=== PATIENT | male | born 1940 | race Caucasian/White ===

== ENCOUNTER 2018-02-16 01:51 | Inpatient (IN) | payer MEDICARE ==
[2018-02-16 02:59] LABS: #Basophils 0.1 thou/uL (0.0-0.2); #Eosinphils 0.2 thou/uL (0.0-0.7); #Lymphocytes 2.5 thou/uL (1.20-3.40); #Monocytes 0.8 thou/uL (0.11-0.59); #Neutrophils 7.2 thou/uL (1.40-6.50); %Basophils 0.5 % (0.0-1.0); %Eosinophils 1.8 % (0.0-10.0); %Lymphocytes 23.4 % (21.0-51.0); %Monocytes 7.6 % (0.0-10.0); %Neutrophils 66.7 % (42.0-75.0); Mean Corpuscular HGB CONC 32.9 g/dL (32.0-36.0); Mean Corpuscular Hemoglobin 31.8 pg (27.0-31.0); Mean Corpuscular Volume 96.6 fL (78.0-98.0); Mean Platelet Volume 7.5 fL (7.4-10.4); Platelet Count 297 thou/uL (130-400); RBC Distribution Width 13.9 % (11.5-14.5); Red Blood Cell (RBC) Count 5.02 mill/uL (4.70-6.10); White Blood Cell (WBC) Count 10.9 thou/uL (4.8-10.8)
[2018-02-16 03:21] LABS: ALT (SGPT) 32 U/L (8-55); AST (SGOT) 28 U/L (5-34); Albumin 3.9 g/dL (3.4-4.8); Alcohol 209 mg/dL (Less than 10); Alkaline Phosphatase 43 U/L (40-150); Anion Gap 18 mmol/L (10-20); BUN (Urea Nitrogen) 18 mg/dL (8.4-25.7); Bilirubin, Total 0.3 mg/dL (0.2-1.2); Calc. Creatinine Clearance 0 mL/min (70-130); Calcium 9.1 mg/dL (7.8-10.44); Carbon Dioxide 24 mmol/L (23-31); Chloride 100 mmol/L (98-107); Estimated GFR-MDRD Greater than 90; Globulin 3.3 g/dL (2.4-3.5); Glucose 204 mg/dL (83-110); Potassium 3.6 mmol/L (3.5-5.1); Protein, Total 7.2 g/dL (5.8-8.1); Sodium 138 mmol/L (136-145)
[2018-02-16] MEDS ORDERED: Fentanyl 100 MCG/2 ML VIAL ONE (03:44)
[2018-02-16 03:57] LABS: PTT 28.1 SEC (22.9-36.1); Prothrombin Time 13.5 SEC (12.0-14.7)
--- NOTE | 2018-02-16 08:11 | CON ---
DATE OF CONSULTATION: 02/16/2018 ATTENDING PHYSICIAN: Dr. Niles Love. HISTORY OF PRESENT ILLNESS: The patient is a 77-year-old male, who presented to the emergency department per EMS after he fell and hit his head at a [employer]. The patient was reportedly drinking that evening and had an alcohol level of 209 on arrival. The patient has little memory of the event. CT head was done on arrival, which showed a small right-sided traumatic subarachnoid hemorrhage. The patient denies taking any anticoagulants or lyme-vpz-[id number] aspirin. I am visiting the patient at bedside. He is awake, alert, and in no acute distress. He has no focal neurologic deficits. He has GCS 15. PAST MEDICAL HISTORY: Diabetes, hypertension, ulcerative colitis. PAST SURGICAL HISTORY: L4-S1 laminectomy by Dr. Major. SOCIAL HISTORY: The patient does drink alcohol approximately 5 beers per day. He does not smoke or use any drugs. ALLERGIES: HE IS ALLERGIC TO HYDROCODONE, INSULIN, PENICILLIN, AND ALMONDS, ALSO FENTANYL. REVIEW OF SYSTEMS: Per HPI. PHYSICAL EXAMINATION: VITAL SIGNS: BP is 115/54, pulse is 90, respiration rate is 17, temperature is 98.2, and O2 is 98% on room air. CONSTITUTIONAL: Awakens easily. He is in no acute distress. HEENT: Head, he has a right posterior scalp laceration, which has recently been repaired by the emergency department. Eyes, PERRLA. Extraocular movements intact. ENT, oral mucosa is pink, intact, and moist. The patient has normal voice. NECK: He is currently wearing a cervical collar. He did not have any tenderness to palpation. RESPIRATORY: Symmetric chest expansion. No evidence of dyspnea. CARDIOVASCULAR: Regular rate and rhythm. MUSCULOSKELETAL: Free active range of motion of all extremities. No focal motor weakness. No reflex asymmetry. NEUROLOGIC: A and O x4. No focal neurologic deficits are appreciated. ASSESSMENT AND PLAN: This is a 77-year-old male, who suffered a right-sided traumatic subarachnoid hemorrhage after a mechanical fall with EtOH intoxication. We will plan to monitor the patient closely with Q2 neuro checks and repeat the CT head approximately 8 hours after the event. He remains in a cervical collar at this time considering his underlying ETOH intoxication, and as this improves his cervical collar can likely be cleared. There are no acute changes on his cervical spine on CT. I have discussed this plan with Dr. Love as well as Trauma Service. Job ID: [id number]
--- NOTE | 2018-02-16 08:39 | RAD ---
PORTABLE AP CHEST XRAY: DATE: 02/16/2018. HISTORY: Chest pain, hypoglycemia. COMPARISON: . FINDINGS: The cardiac silhouette and pulmonary vasculature are within normal limits. Again noted is evidence o f prior granulomatous disease. There is mild elevation of the right hemidiaphragm. Lungs are otherw ise clear. Vascular calcification is seen in the thoracic aorta. The chest is overall stable compar ed to the prior exam. IMPRESSION: Stable chest without evidence of acute cardiopulmonary process. POS: [facility]
[2018-02-16] MEDS ORDERED: Acetaminophen 1,000 MG in Premix Bag 1 BAG IVPB SCH (08:51)
[2018-02-16] MEDS ORDERED: Dextrose 5% in Water 1,000 ML IV PRN (08:51)
[2018-02-16] MEDS ORDERED: Ondansetron PF 4 MG/2 ML Vial IVP PRN (08:51)
[2018-02-16] MEDS ORDERED: Ondansetron ODT 4 MG TAB PO PRN (08:51)
[2018-02-16] MEDS ORDERED: Dextrose 50% Abboject 50 ML SYRINGE SLOW IVP PRN (08:51)
[2018-02-16] MEDS ORDERED: Multivitamins, Adult 10 ML, Folic Acid 1 MG, Thiamine HCl 100 MG in Dextrose 5 %-0.45 %... IV SCH (09:00)
--- NOTE | 2018-02-16 09:48 | CT ---
PRELIMINARY REPORT/[facility]/EMERGENTY AFTER-HOURS PROCEDURE Addendum created by Katie Lazo MD on 02/16/2018 3:32 AM Central Time ([place] & [place]) THIS REPORT CONTAINS FINDINGS THAT MAY BE CRITICAL TO PATIENT CARE. The findings were verbally commun icated via telephone conference with ANITA Anthony by Dr. Lazo on 02/16/2018 3:32 AM SENIOR EDITOR. The results were acknowledged and understood. Initial Report created on 02/16/2018 3:27 AM Central Time ([place] & [place]) CT Head Without Contrast EXAM DATE/TIME: 02/16/2018 2:43 AM CLINICAL HISTORY: 77 years old, male; Injury or trauma; Fall; Initial encounter; Abrasion; Head, generalized; Patient H X: Er 4; Ems reports PT fell from standing, lac noted to back of head bleeding controlled. +etoh TECHNIQUE: Axial computed tomography images of the head/brain without contrast. COMPARISON: No relevant prior studies available. FINDINGS: Brain: Small serpiginous focus of acute subarachnoid hemorrhage within a posterolateral right parieta l sulcus (series 2, images 15-18). There is no evidence for acute stroke. There is global and diffuse parenchymal volume loss. There are scattered foci of decreased attenuation in the periventricular and subcortical white matter, nonspec ific, but most consistent with chronic small vessel ischemic changes in patient of this age. Focal ec angelika M1 segment left middle cerebral artery. Ventricles / cisterns / extra-axial spaces: There is no hydrocephalus, midline shift, or acute extra- axial fluid collection. There is no sulcal effacement. Soft tissues: Right lateral parietal scalp hematoma without underlying skull fracture or depression. Sinuses: No findings of acute sinusitis or suspicious sinus mass. Bone: No acute fracture or displacement. Impression: Small serpiginous focus of acute subarachnoid hemorrhage within a posterolateral right parietal sulcu s (series 2, images 15-18). No mass effect. No acute stroke. Focal ectasia M1 segment left middle cerebral artery. Thank you for allowing us to participate in the care of your patient. Dictated and Authenticated by: Katie Lazo MD 02/16/2018 3:27 AM Central Time ([place] & [place]) FINAL REPORT EMERGENT AFTER HOURS NONCONTRAST CT HEAD: DATE: 02/16/2018. HISTORY: Injury after falling from standing. COMPARISON: None available. IMPRESSION: 1. Areas of subarachnoid hemorrhage seen within the inferior aspect right parietal lobe, lateral lef t supraventricular frontal lobe, more superior right parietal lobe, posteromedial left parietal lobe, and questionable area in the more anterior left frontal lobe in a supraventricular location. 2. Diffuse cerebral volume loss. 3. Right parietal scalp hematoma without evidence of an underlying fracture. 4. Focal ectasia M1 segment left middle cerebral artery. 5. Findings are in agreement with the preliminary report by [facility]. There are scattered areas of sub arachnoid hemorrhage within each cerebral hemisphere. POS: [facility]
--- NOTE | 2018-02-16 10:14 | CT ---
PRELIMINARY REPORT/[facility]/EMERGENTY AFTER-HOURS PROCEDURE CT Cervical Spine Without Contrast EXAM DATE/TIME: 02/16/2018 2:38 AM CLINICAL HISTORY: 77 years old, male; Injury or trauma; Fall; Initial encounter; Abrasion; Patient HX: Er 4; Ems report s PT fell from standing, lac noted to back of head bleeding controlled. +etoh TECHNIQUE: Axial computed tomography images of the cervical spine without intravenous contrast. Coronal and sagittal reformatted images were created and reviewed. COMPARISON: No relevant prior studies available. FINDINGS: Vertebrae: No fracture or dislocation. No acute compression deformity. No suspicious osseous lesions. Disc spaces / canal / foramina: There is multilevel degenerative disc space narrowing and spur format ion. No CT evidence of advanced canal or foraminal stenosis. Paraspinal soft tissues: No pathologic masses or fluid collections. No visible soft tissue air. IMPRESSION: Chronic degenerative changes without acute fracture or dislocation. Thank you for allowing us to participate in the care of your patient. Dictated and Authenticated by: Katie Lazo MD 02/16/2018 3:29 AM Central Time ([place] & [place]) FINAL REPORT EMERGENT AFTER HOURS NONCONTRAST CT CERVICAL SPINE: DATE: 02/16/2018. History Altered mental status. Injury from falling from standing. Laceration to back of head. TECHNIQUE: Contiguous axial CT images are obtained through the cervical spine from the skull base to the level o f the T1 vertebral body. Sagittal and coronal reformatted images are provided. IMPRESSION: 1. Multilevel degenerative changes are seen throughout the cervical spine including multiple promine nt bridging anterior osteophytes as well as multiple disk-osteophyte complexes and what appears to be calcification of posterior longitudinal ligament at multiple levels. 2. No fracture or subluxation involving the cervical spine. 3. Calcifications within each lobe of the thyroid gland which are nonspecific. No discrete thyroid lesion is visualized. 4. Vascular calcifications in the carotid arteries. 5. Findings are in agreement with the preliminary report by [facility]. POS: [facility]
--- NOTE | 2018-02-16 10:40 | CT ---
CT HEAD NONCONTRAST: DATE: 02/16/2018. TIME: 0955 hours. HISTORY: Intracranial hemorrhage. Head injury. COMPARISON: Earlier exam on the same date at 0244 hours. FINDINGS: Minimal hyperdense fluid remains at a right posterior frontal sulcus on the current exam. The area o f greater hyperdense sulcal fluid at the right parietal lobe on the prior study has nearly completely resolved. Hyperdense fluid on the left is no longer visible. No new areas of hemorrhage. Ventricl es are unremarkable. Other findings are stable. IMPRESSION: Near-complete clearing of subarachnoid hemorrhage. No new abnormalities are demonstrated. POS: [facility]
--- NOTE | 2018-02-16 10:48 | HP ---
REQUESTING PHYSICIAN: Dr. Salgado. CONSULTATIONS: Neurosurgery, Dr. Love. HISTORY OF PRESENT ILLNESS: The patient is a 77-year-old man, who was drinking alcohol this evening, celebrating New Year at a friend's house when he fell backwards and hit his head. He was brought to the emergency department, where he underwent evaluation and examination and was noted to have a small subarachnoid hemorrhage, and after evaluation by Neurosurgery, they requested that we admit him for observation with a plan for a repeat head CT and to allow the patient to sober up to continue his neurological exams. The patient is unsure why he fell down. He just knows that he was drinking. He is unsure of any syncopal type symptoms prior to his fall. The patient denies having a history of falling. He does drink approximately 12 beers per day. ALLERGIES: FENTANYL, HYDROCODONE, INSULIN, AND PENICILLIN. THE PATIENT IS UNSURE OF THE REACTIONS TO ANY OF THESE MEDICATIONS, THOUGH HE HAS HAD FENTANYL SINCE BEING HERE WITHOUT ANY ADVERSE REACTION. THE PATIENT IS A KNOWN DIABETIC, UNSURE THE INSULIN REACTION. AGAIN, THE PENICILLIN HE IS UNSURE WHAT THE REACTION IS. CURRENT MEDICATIONS: Apriso, lisinopril-hydrochlorothiazide, metoprolol-XL, metformin, Humira, hydroxyurea, Norvasc. PAST MEDICAL HISTORY: Diabetes, hypertension, ulcerative colitis. PAST SURGICAL HISTORY: Exploratory laparotomy and drainage of pelvic abscess, spinal surgery. SOCIAL HISTORY: The patient lives independently alone. States he drinks anywhere from 5 to 12 beers per day. Denies drug or tobacco use. FAMILY HISTORY: High blood pressure. REVIEW OF SYSTEMS: A 10-point review of systems is negative except as otherwise stated. PHYSICAL EXAMINATION: VITAL SIGNS: Blood pressure 128/73, heart rate 83, respirations 17, oxygen saturation 98% on room air, temperature is 98.2. GENERAL: The patient is resting comfortably in bed. He is awake, alert x3. [place] Coma Scale is 15. HEENT: Head; the patient has a small superficial laceration less than a centimeter on his occiput. Remainder of his head is atraumatic. Eyes; extraocular motion intact, PERRLA bilaterally. Ears are atraumatic without discharge. Nose is atraumatic without discharge. Oropharynx is clear. NECK: Slightly tender primarily in the paraspinous region. He is immobilized on [place] collar at this time. Trachea is midline. No JVD. CHEST: Clear to auscultation with good inspiratory and expiratory effort. HEART: Regular rate and rhythm. ABDOMEN: Soft, flat, nontender with active bowel sounds. PELVIS: Stable. EXTREMITIES: Neurovascularly intact x4. Left upper extremity has a small contusion noted on the elbow. BACK: Nontender and atraumatic. LABORATORY FINDINGS: White blood cell count 10.9, hemoglobin 16.0, hematocrit 48.5, platelets 297. Sodium 138, potassium 3.6, chloride 100, CO2 of 24, BUN 18, creatinine 0.79, glucose 204. LFTs are unremarkable. Troponin is less than 0.010. Blood alcohol 209. PT 14, INR 1.0, PTT 28. RADIOGRAPHIC FINDINGS: CT of the brain without contrast shows a small serpiginous focus of an acute subarachnoid hemorrhage within the posterolateral right parietal sulcus. There is no mass effect. No acute stroke. CT of the C-spine without contrast shows no acute fractures, subluxation. Chest x-ray shows a stable chest without evidence of acute cardiopulmonary process. ASSESSMENT: 1. Status post fall. 2. Acute subarachnoid hemorrhage. 3. Acute alcohol intoxication. 4. History of diabetes. 5. History of hypertension. 6. History of ulcerative colitis. PLAN: Plan will be to admit the patient to the [facility] for frequent neuro exams and repeat head CT in the morning. The patient will have nonnarcotic pain control, pulmonary toilet, gastritis and mechanical VTE prophylaxis. The patient will be allowed to have a clear liquid diet until his CT scan determines if surgical intervention is needed. The patient was evaluated by Isabel Lao PA-C in the emergency department for the Neurosurgical Service and we will order the repeat head CT. Of note, at the time of dictation, the patient remained in the emergency department due to bedding issues on the floor. If the CT scan is stable, we will likely transfer him to the surgical floor from the ER. The evaluation, examination, laboratory, and radiographic findings will be discussed with Dr. Hamilton after this dictation. Job ID: [id number]
--- NOTE | 2018-02-16 11:45 | PRG ---
DATE OF SERVICE: 02/16/2018 SUBJECTIVE: The patient is seen and examined. I agree with Isabel Lao's evaluation on 02/16/2018. The patient is a 77-year-old man, who fell while intoxicated last night, striking the back of his head. He is neurologically intact. There was trace parietal traumatic subarachnoid hemorrhage identified on the initial CT scan. Repeat CT scan done 8 hours later reveals largely resolved traumatic subarachnoid hemorrhage with only a tiny speck of residual. IMPRESSION AND PLAN: The patient can safely be discharged. I have no plans for clinical or radiographic followup. Job ID: [id number]
[2018-02-16] MEDS ORDERED: Cyclobenzaprine 10 MG TAB PO PRN (12:59)
[2018-02-16] MEDS ORDERED: traMADol HCl 50 MG TAB PO PRN (12:59)
[2018-02-16] MEDS ORDERED: hydrALAZINE 25 MG TAB PO SCH (14:45)
[2018-02-16] MEDS: Acetaminophen 500 MG TAB PO SCH ×2 (15:18→20:06)
[2018-02-16] MEDS: Famotidine 20 MG TAB PO SCH ×2 (15:18→20:07)
[2018-02-16] MEDS: hydrALAZINE 25 MG TAB PO SCH (20:09)
[2018-02-16] MEDS ORDERED: cloNIDine 0.1 MG TAB PO SCH (21:00)
[2018-02-17] MEDS: Acetaminophen 500 MG TAB PO SCH ×4 (03:05→20:11)
[2018-02-17 06:03] LABS: #Eosinphils 0.4 thou/uL (0.0-0.7); #Lymphocytes 2.3 thou/uL (1.20-3.40); #Monocytes 0.9 thou/uL (0.11-0.59); #Neutrophils 6.9 thou/uL (1.40-6.50); %Basophils 0.5 % (0.0-1.0); %Eosinophils 4.2 % (0.0-10.0); %Lymphocytes 21.8 % (21.0-51.0); %Monocytes 8.5 % (0.0-10.0); %Neutrophils 65.1 % (42.0-75.0); Hemoglobin 15.5 g/dL (14.0-18.0); Mean Corpuscular Hemoglobin 33.2 pg (27.0-31.0); Mean Corpuscular Volume 97.6 fL (78.0-98.0); Mean Platelet Volume 8.4 fL (7.4-10.4); Platelet Count 275 thou/uL (130-400); Red Blood Cell (RBC) Count 4.68 mill/uL (4.70-6.10); White Blood Cell (WBC) Count 10.6 thou/uL (4.8-10.8)
[2018-02-17 06:20] LABS: Anion Gap 12 mmol/L (10-20); BUN (Urea Nitrogen) 17 mg/dL (8.4-25.7); Calc. Creatinine Clearance 0 mL/min (70-130); Calcium 8.8 mg/dL (7.8-10.44); Carbon Dioxide 27 mmol/L (23-31); Chloride 104 mmol/L (98-107); Estimated GFR-MDRD Greater than 90; Glucose 162 mg/dL (83-110); Potassium 3.7 mmol/L (3.5-5.1); Sodium 139 mmol/L (136-145)
[2018-02-17] MEDS: Folic Acid 1 MG TAB PO SCH (08:34)
[2018-02-17] MEDS: Famotidine 20 MG TAB PO SCH ×2 (08:34→20:12)
[2018-02-17] MEDS: hydrALAZINE 25 MG TAB PO SCH ×2 (08:36→20:12)
[2018-02-17] MEDS: Lisinopril/Hydrochlorothiazide 20/25 mg Tablet PO SCH (08:36)
[2018-02-17] MEDS: Oxazepam 10 MG CAP PO SCH ×3 (09:13→20:13)
[2018-02-17] MEDS: Scopolamine 1.5 mg/72 hour Patch TD SCH (12:12)
--- NOTE | 2018-02-17 15:39 | PRG ---
DATE OF SERVICE: 02/17/2018 SUBJECTIVE: Mr. Giron is a 77-year-old man, who suffered a ground level fall resulting in acute traumatic subarachnoid hemorrhage. His [place] Coma Scale has been stable at 14 to 15. This morning, the patient is awake and alert with a [place] Coma Scale of 15. He reports positional vertigo. He denies any photophobia, dyspnea, chest pain, or syncope. He denies any nausea or vomiting. He tolerates oral intake. Urinary output has been adequate. The patient moves all extremities. PHYSICAL EXAMINATION: VITAL SIGNS: Include blood pressure 177/90, pulse is 95, respiratory rate is 22, temperature is 98.7 degrees Fahrenheit, and oxygen saturation is 94% on room air. HEENT: Reveals normocephalic and atraumatic. Pupils are equal, round, and reactive to light and accommodation. Extraocular muscles are intact bilaterally. He has no sclerae icterus present. NECK: He has no jugular venous distention noted. HEART: Reveals regular rate and rhythm. No murmurs or gallops auscultated. LUNGS: Clear to auscultation bilaterally. Breathing, regular and nonlabored. ABDOMEN: Soft, nontender, and nondistended. EXTREMITIES: Reveal 2+ radial and pedal pulses bilaterally. He has no ankle edema present. NEUROLOGIC: Reveals no focal deficits present. MUSCULOSKELETAL: Reveals 5/5 muscle strength in bilateral upper and lower extremities. He has no motor or sensory deficit identified. LABORATORY FINDINGS: Today include a CBC, which is stable with 10,600 white blood cells, hemoglobin and hematocrit 15.5 and 45.7 respectively. The platelet count is 275,000. Metabolic profile; sodium 139, potassium is 3.7, chloride is 104, bicarb is 27, BUN and creatinine 17 and 0.71 respectively. Glucose is 162. IMPRESSION: Post injury, 1. Status post ground level fall. 2. Acute traumatic brain injury with stable subarachnoid hemorrhage. 3. Acute posttraumatic positional vertigo likely secondary to tympano-vestibular dysfunction. PLAN: 1. We will place the scopolamine patch to treat the positional vertigo. 2. Increase activity per physical and occupational therapy. 3. Anticipate discharge in next 24 to 48 hours if the patient remains neurologically stable and the vertigo has resolved. 4. The above findings and plans were discussed with the patient, who indicated understanding of the information given. 5. Answered his questions. Job ID: [id number]
[2018-02-17] MEDS: cloNIDine 0.2 MG TAB PO SCH (17:38)
[2018-02-18] MEDS: cloNIDine 0.2 MG TAB PO SCH ×4 (00:32→18:27)
[2018-02-18] MEDS: Acetaminophen 500 MG TAB PO SCH ×4 (03:02→20:13)
[2018-02-18] MEDS: hydrALAZINE 25 MG TAB PO SCH ×2 (09:32→20:14)
[2018-02-18] MEDS: Oxazepam 10 MG CAP PO SCH ×3 (09:32→20:15)
[2018-02-18] MEDS: Lisinopril/Hydrochlorothiazide 20/25 mg Tablet PO SCH (09:33)
[2018-02-18] MEDS: Famotidine 20 MG TAB PO SCH ×2 (09:33→20:14)
[2018-02-18] MEDS: Folic Acid 1 MG TAB PO SCH (09:34)
[2018-02-18] MEDS ORDERED: Meclizine HCl 25 MG TAB PO SCH (10:00)
--- NOTE | 2018-02-18 13:34 | PRG ---
DATE OF SERVICE: 02/18/2018 The patient was seen with Dr. Dmitriy Dueñas. SUBJECTIVE: Mr. Giron is a 77-year-old male, who suffered a ground level fall resulting in traumatic subarachnoid hemorrhage by brain CT. Repeat CT showed stable bleed. The patient still complains of neck pain, worse with moving and vertigo. He was started on scopolamine patch yesterday with minimal relief. He has tolerated some p.o. He is sitting up in the chair today. His GCS is currently 15. Neurosurgery is following. OBJECTIVE: VITAL SIGNS: Temperature is 98.3, blood pressure is 132/86, heart rate is 64, saturating 95% on room air, and breathing 18 times per minute. GENERAL: This is a 77-year-old male, sitting up in bed, in slight distress from vertigo. He states that it is worse when he is moving around. HEENT: Normocephalic. Trachea is midline. No JVD is appreciated. NECK: The patient does have some tenderness to palpation in the neck, specifically with flexion and extension. Therefore, a C-collar has been placed. An MRI has been ordered. RESPIRATORY: Equal rise and fall bilaterally. No respiratory distress. CARDIOVASCULAR: Regular rate and rhythm. ABDOMEN: Soft and nontender. NEUROLOGIC: Alert and oriented to person, place, time, and event. Moves all extremities well. Extremities moves well. PSYCH: Normal mood and affect. SKIN: [place], warm, and dry. LABORATORY DATA: There is none from today to review. Last glucose was 162 noted from yesterday. ASSESSMENT AND PLAN: 1. Acute traumatic brain injury with stable subarachnoid hemorrhage. 2. Acute neck pain, likely secondary to fall. 3. Status post ground level fall. 4. History of hypertension and diabetes. PLAN: 1. The patient states that he is allergic and has had hives from insulin in the past. We will continue his oral glycemic agents. 2. Blood pressure is acceptable after p.o. medications. Continue to monitor. 3. MRI of the spine has been ordered. 4. C-collar until MRI has been resulted. 5. Pain control as needed. 6. Continue to work with PT and ambulate as tolerated. 7. Continue scopolamine. Add meclizine for dizziness. 8. Reassess in the morning. Hope to discharge in the next few days. 9. Knuwj-ck-nvac glucose q.12 hours x3 checks. We will make adjustments as needed. 10. Continue all other supportive care. 11. The patient was seen by Dr. Dmitriy Dueñas. We have updated the patient and the patient's family at the bedside and answered all questions. Job ID: [id number]
[2018-02-18] MEDS: Meclizine HCl 25 MG TAB PO SCH ×2 (13:59→23:24)
--- NOTE | 2018-02-18 15:32 | MRI ---
MRI CERVICAL SPINE WITHOUT CONTRASTS: Date: 02-18-18 Comparison: None. History: Fall, neck pain and dizziness. Technique: Multiplanar, multisequence MR imaging of the cervical spine provided without contrast. FINDINGS: The sagittal STIR imaging demonstrates no focal area of osseous marrow edema. There is no significant anterolisthesis or retrolisthesis present within the cervical spine. There is moderate degenerative change at the atlantoaxial interspace. C2-3: Disc space narrowing, disc desiccation, and disc bulge present with small central disc protrusi on effacing the ventral thecal sac and abutting the ventral aspect of the cord. Mild central canal st enosis. Mild left facet uncal vertebral osteophyte formation with no significant neural foraminal hanna nosis on either side. C3-4: Disc space narrowing, disc desiccation and disc bulge with effacement of the ventral thecal sac and mild central canal stenosis. Mild bilateral facet and uncal vertebral osteophyte formation, left greater than right. No significant neural foraminal stenosis. C4-5: Disc space narrowing, disc desiccation and mild disc bulge. Anterior osteophyte formation. Mild central canal stenosis. Bilateral facet and uncal vertebral osteophyte formation with mild bilateral neural foraminal stenosis. Anterior osteophyte formation noted. C5-6: There is disc space narrowing and disc desiccation with disc osteopyte complex and anterior ost eophyte formation. Disc osteophyte complex abuts the ventral aspect of the cord with minimal mass eff ect on the cord to the left of midline and a moderate degree of central canal stenosis. There is bila teral facet and uncal vertebral osteophyte formation, left greater than right. Mild right and moderat e left neural foraminal stenosis. C6-7: Disc space narrowing and disc desiccation noted with anterior osteophyte formation. There is a central disc protrusion effacing the ventral thecal sac and abutting the ventral aspect of the cord w ith a moderate degree of central canal stenosis. Mild bilateral neural foraminal stenosis on the basi s of disc bulge and uncal vertebral osteophyte formation. C7-T1: There is disc space narrowing, disc desiccation and disc bulge with a small central disc protr usion partially effacing the ventral thecal sac and causing mild central canal stenosis. There is ant erior osteophyte formation. No significant neural foraminal stenosis. No focal area of abnormal signal intensity is identified within the cervical cord. IMPRESSION: Multilevel degenerative change seen within the cervical spine, most prominent at C5-6 as detailed abo ve. POS: [facility]
[2018-02-18] MEDS: metFORMIN 500 MG TAB PO SCH (20:15)
[2018-02-18] MEDS ORDERED: Glimepiride 4 MG TAB PO SCH (21:00)
[2018-02-19] MEDS: cloNIDine 0.2 MG TAB PO SCH ×3 (00:08→12:22)
[2018-02-19] MEDS: Acetaminophen 500 MG TAB PO SCH ×2 (03:52→09:23)
[2018-02-19] MEDS: Meclizine HCl 25 MG TAB PO SCH ×2 (06:22→12:22)
[2018-02-19] MEDS: Lisinopril/Hydrochlorothiazide 20/25 mg Tablet PO SCH (09:24)
[2018-02-19] MEDS: metFORMIN 500 MG TAB PO SCH (09:25)
[2018-02-19] MEDS: Oxazepam 10 MG CAP PO SCH (09:25)
[2018-02-19] MEDS: Famotidine 20 MG TAB PO SCH (09:25)
[2018-02-19] MEDS: hydrALAZINE 25 MG TAB PO SCH (09:25)
[2018-02-19] MEDS: Folic Acid 1 MG TAB PO SCH (09:26)
[2018-02-19 11:46] VITALS: TEMP 98.2
[2018-02-19] MEDS: Scopolamine 1.5 mg/72 hour Patch TD SCH (12:28)
[2018-02-19] MEDS ORDERED: Scopolamine 1.5 mg/72 hour Patch TD SCH (12:30)
[2018-02-19 12:36] VITALS: BP 119/73
--- NOTE | 2018-02-20 15:16 | DIS ---
DATE OF ADMISSION: 02/16/2018 DATE OF DISCHARGE: 02/19/2018 ADMITTING PHYSICIAN: Hesham Hamilton MD DISCHARGING PHYSICIAN: Dmitriy Dueñas DO STUDIO OPERATION ENGINEER: Niles Love MD with Neurosurgery. ADMITTING DIAGNOSES: 1. Status post ground level fall. 2. Acute traumatic subarachnoid hemorrhage. 3. Positional vertigo likely secondary to vestibular dysfunction. DISCHARGE DIAGNOSES: 1. Status post ground level fall. 2. Acute traumatic subarachnoid hemorrhage. 3. Positional vertigo likely secondary to vestibular dysfunction. HISTORY AND HOSPITAL COURSE: A 77-year-old man, who was apparently intoxicated when he fell from a ground level position, sustained acute traumatic subarachnoid hemorrhage. The patient was evaluated by Trauma Service. He had an unremarkable cervical spine CT scan. Chest x-ray was also unremarkable for any acute intrathoracic pathology. CT scan of the brain at that time revealed a small subarachnoid hemorrhage without any mass effect. Subsequent followup CT scan of the brain revealed a resolving subarachnoid hemorrhage. The patient had essentially an uneventful course in this hospitalization except for onset of positional vertigo, which limited his mobility. He was placed on scopolamine patch without any relief. Yesterday, he was still complaining of vertigo even with minimal movement. Meclizine was initiated and the patient has recorded marked improvement since. Today, he is awake and alert. He is ambulating with minimal difficulty. His pain is adequately controlled on oral analgesics. He denies any photophobia. He has tolerated general diet, having normal bowel and urinary function. The patient has, otherwise, remained hemodynamically stable and afebrile throughout his hospitalization. On clinical examination today reveals a man in good spirits, but he was able to ambulate around the 3rd floor hallway without any difficulty. He will be discharged home today with the following instructions. 1. He is to follow up with his primary care physician in 7 to 10 days regarding his blood pressure control. 2. Neurosurgery has evaluated the patient and determined that he requires no further clinical or radiographic followup. 3. The patient, however, has been instructed to follow up with Trauma Service as needed especially if still having any vertigo past the next 1 to 2 weeks. He is to call with any questions or problems including fever in excess of 101 degrees Fahrenheit, dyspnea, syncope, or any intolerance to oral intake. 4. He is instructed to resume all his prehospital medication as prescribed by his primary care physician to include clonidine 0.1 mg p.o. at bedtime, Amaryl 4 mg p.o. at bedtime, lisinopril/hydrochlorothiazide combination 20/25 mg and he takes 2 tablets p.o. q.a.m., metformin 1000 mg p.o. b.i.d., Toprol-XL 50 mg p.o. at bedtime. Additionally, he may take Tylenol 1000 mg p.o. q.6 hours p.r.n. headaches. 5. He is given a prescription for meclizine 25 mg #30 to be taken one p.o. t.i.d. p.r.n. vertigo. 6. He is also given a prescription for scopolamine 1.5 mg transdermal patch #5 to apply behind the ear q.3 days. Above instructions were given to the patient and his adult daughter at bedside. Adult daughter will stay with the patient for next 2 days. The patient has been discharged home with home health care. The patient indicates understanding of all information given to him today. Answered their questions. The patient has expressed gratitude for the care and natural disease during this hospitalization. Job ID: [id number] MTDD
== END 2018-02-19 13:08 | disposition home or self-care (01) | DRG 65 ==
LOC: ERS 01:51 → INTOOBSV 04:09 → ERHOLD 04:09 → SURG A 11:21 → OBSVTOIN 02-18 10:12
PROVIDERS: ADMIT Specialist; ATTEND Specialist
DX: I60.9 Nontraumatic subarachnoid hemorrhage, unspecified (principal); K51.90 Ulcerative colitis, unspecified, without complications; F10.129 Alcohol abuse with intoxication, unspecified; E11.9 Type 2 diabetes mellitus without complications; I10 Essential (primary) hypertension
CPT/HCPCS: 36415; 36416; 70450; 71045; 72125; 72141; 80048; 80053; 80307; 84484; 85025; 85610; 85730; 90471; 90662; 93005; 94760; 96365; 96367; 96375; G0008; G0390; J0131; J3010; J3411; J7042

== ENCOUNTER 2018-05-13 07:33 | Outpatient (CLI) | payer MEDICARE ==
[2018-05-13 08:17] LABS: Estimated GFR-MDRD - POC Greater than 90
--- NOTE | 2018-05-13 09:24 | RAD ---
CERVICAL SPINE 4 VIEWS: Date: 05/13/18 HISTORY: Neck pain FINDINGS: Severe bridging disc osteophytosis changes. C7 and T1 are obscured on the lateral view. No abnormal t ranslation between flexion and extension. Extensive multilevel facet arthrosis. IMPRESSION: Severe spondylosis with extensive bridging disc osteophytosis without abnormal translation. POS: [facility]
--- NOTE | 2018-05-13 09:38 | RAD ---
LUMBAR SPINE 4 VIEWS: HISTORY: Low back pain and lumbar radiculopathy. COMPARISON: Lumbar spine MRI 07/24/2016. FINDINGS: Mild dextroscoliosis. Contrast media noted within the renal collecting systems from previous iodinat ed contrast injection. Very severe multilevel disk-osteophytosis and facet arthrosis with prominent bridging osteophytes. Mild anterolisthesis of L4 on L5 and mild retrolisthesis of L3 on L4 without e vidence for abnormal translation. Laminectomy changes at L5. IMPRESSION: Severe spondylosis with mild anterolisthesis of L4 on L5 and retrolisthesis of L3 on L4 with laminect darcie changes at L5. No abnormal translation. POS: [facility]
--- NOTE | 2018-05-13 10:38 | CT ---
CTA HEAD WITH AND WITHOUT CONTRAST CTA NECK WITH AND WITHOUT CONTRAST: CTA HEAD WITH AND WITHOUT CONTRAST: Multiple tomograms are obtained through the head without IV enhancement. This is followed by multipl e axial tomograms through the head following angio protocol with multiplanar reconstruction and 3D po st processing. INDICATION: Ataxia, dizziness, and leg paresthesia. FINDINGS: CT HEAD WITHOUT CONTRAST: Mild cortical volume loss. Ventricles have normal size and position. There is no evidence of intrac ranial mass, hemorrhage, or acute infarct. IMPRESSION: No acute finding. CTA HEAD: The intracranial internal carotid arteries are patent and symmetric. Middle cerebral arteries are pa tent and symmetric. The M2 and M3 branches appear symmetric. The anterior cerebral arteries are patent and symmetric. Basilar artery is patent. Posterior cerebral arteries appear patent and symmetric. IMPRESSION: Unremarkable CT cerebral angio study. CTA NECK: Multiple axial tomograms were obtained through the neck following angio protocol with multiplanar rec onstructions and 3D post processing. INDICATION: Ataxia, dizziness, left leg paresthesia. FINDINGS: No evidence of stenosis at the origin of the arch vessels. Both common carotid arteries are patent and unremarkable. There are atherosclerotic changes at the right bulb and proximal right ICA. This does result in mild stenosis of the proximal right internal carotid artery. The degree of stenosis according to NASCET criteria is estimated in the 25% range. This does not appear hemodynamically significant. There are atherosclerotic changes in the left bulb and left proximal ICA. This results in stenosis o f the proximal left ICA which is estimated at approximately 50% diameter stenosis according to NASCET criteria. This does indicate hemodynamic significance. There is a dominant right vertebral artery. Both vertebral arteries are patent. No soft tissue abnormality identified. IMPRESSION: Atherosclerotic changes at both bulbs and proximal internal carotid arteries. There is evidence of h emodynamically significant stenosis at the proximal left internal carotid artery as described above. POS: [facility]
--- NOTE | 2018-05-13 11:09 | MRI ---
MRI LUMBAR SPINE WITH AND WITHOUT CONTRAST: Date: 05/13/18 COMPARISON: Noncontrast enhanced lumbar spine MRI dated 07/24/16. HISTORY: Low back pain with left lower extremity radiculopathy, multiple prior lumbar spine surgeries. TECHNIQUE: Multiplanar, multisequence MR imaging of the lumbar spine is provided without contrast media. FINDINGS: The sagittal STIR imaging demonstrates no focal area of osseous marrow edema. There is fluid signal i ntensity within the bilateral facet joints at the L4-5 level. On the basis of five lumbar-type verteb ral bodies, the conus medullaris terminates at the L1-2 level. T12-L1: There is disc space narrowing and disc desiccation with anterior osteophyte formation. Mild bilateral facet hypertrophy. No significant central canal or neural foraminal stenosis. L1-2: Disc desiccation and mild disc space narrowing with anterior osteophyte formation noted. Corti tomasz thickening is seen along the posterior margin of the pedicle on the left, a stable finding. Minim al stable left-sided neural foraminal stenosis. No significant central canal or right neural foramina l stenosis. L2-3: Mild disc bulge with no central canal stenosis. Bilateral facet hypertrophy, left greater than right. Anterior osteophyte formation and left lateral osteophyte formation. No significant neural fo raminal stenosis is seen on either side. L3-4: There is significant bilateral facet hypertrophy, unchanged when compared to the prior exam. T here is disc desiccation and mild bilateral stable neural foraminal stenosis. No significant central canal stenosis. L4-5: Severe bilateral facet hypertrophy. Disc space narrowing and disc desiccation with moderate/se angelique central canal stenosis, worsened when compared to the 2017 exam. There is prominent bilateral fa cet hypertrophic change, left greater than right, with osteophyte extending into the region of the ce ntral canal bilaterally. There is mild/moderate bilateral neural foraminal stenosis. There is a small new synovial cyst emanating from the facet joint extending into the posterior epidural space on the right measuring 6.0 mm. L5-S1: Bilateral facet hypertrophy. Anterior osteophyte formation noted. Moderate right neural roosevelt inal stenosis on the basis of osteophyte encroachment, stable. No significant left neural foraminal s tenosis. Review of the retroperitoneal structures demonstrates numerous incompletely imaged T2 hyperintense re nal lesions suggesting numerous renal cysts. The postcontrast imaging demonstrates enhancement posterior to the thecal sac at the L4 and L5 levels consistent with postoperative scar on the basis of prior laminectomy. There is no abnormal enhanceme nt involving the contents of the thecal sac. No abnormal enhancement of the intervertebral discs or t he imaged osseous structures. IMPRESSION: 1. Multilevel postoperative and degenerative change within the lumbar spine as detailed above. 2. The most significant degenerative changes are at L4-5 with severe central canal stenosis, worsene d. Please see above discussion regarding detailed assessment at each level. POS: [facility]
== END 2018-05-13 07:34 | disposition home or self-care (01) ==
LOC: BICCT 07:33
PROVIDERS: ATTEND Surgery
DX: M47.26 Other spondylosis with radiculopathy, lumbar region (principal); M54.2 Cervicalgia; M54.5 Low back pain; R42 Dizziness and giddiness; R20.2 Paresthesia of skin; I65.23 Occlusion and stenosis of bilateral carotid arteries; M43.16 Spondylolisthesis, lumbar region; M47.812 Spondylosis without myelopathy or radiculopathy, cervical region; M25.78 Osteophyte, vertebrae; M48.061 Spinal stenosis, lumbar region without neurogenic claudication; Z98.890 Other specified postprocedural states
CPT/HCPCS: 70496; 70498; 72050; 72120; 72158; 82565

== ENCOUNTER 2018-08-17 07:28 | Outpatient (CLI) | payer MEDICARE ==
[2018-08-17 09:06] LABS: #Basophils 0.1 thou/uL (0.0-0.2); #Eosinphils 0.2 thou/uL (0.0-0.7); #Lymphocytes 2.7 thou/uL (1.20-3.40); #Monocytes 0.8 thou/uL (0.11-0.59); #Neutrophils 6.3 thou/uL (1.40-6.50); %Eosinophils 2.2 % (0.0-10.0); %Lymphocytes 26.8 % (21.0-51.0); %Monocytes 7.6 % (0.0-10.0); %Neutrophils 62.4 % (42.0-75.0); Hemoglobin 16.1 g/dL (14.0-18.0); Mean Corpuscular HGB CONC 33.5 g/dL (32.0-36.0); Mean Corpuscular Hemoglobin 32.3 pg (27.0-31.0); Mean Corpuscular Volume 96.4 fL (78.0-98.0); Mean Platelet Volume 8.2 fL (7.4-10.4); Platelet Count 262 thou/uL (130-400); RBC Distribution Width 12.9 % (11.5-14.5); Red Blood Cell (RBC) Count 4.99 mill/uL (4.70-6.10)
[2018-08-17 09:22] LABS: Prothrombin Time 12.8 SEC (12.0-14.7)
[2018-08-17 09:23] LABS: PTT 26.4 SEC (22.9-36.1)
[2018-08-17 09:25] LABS: Anion Gap 17 mmol/L (10-20); BUN (Urea Nitrogen) 18 mg/dL (8.4-25.7); Calc. Creatinine Clearance 0 mL/min (70-130); Calcium 9.7 mg/dL (7.8-10.44); Carbon Dioxide 22 mmol/L (23-31); Chloride 101 mmol/L (98-107); Estimated GFR-MDRD Greater than 90; Glucose 158 mg/dL (83-110); Sodium 136 mmol/L (136-145)
== END 2018-08-17 07:29 | disposition home or self-care (01) ==
LOC: LABBT 07:28
PROVIDERS: ATTEND Surgery
DX: Z01.818 Encounter for other preprocedural examination (principal); M54.16 Radiculopathy, lumbar region; M48.061 Spinal stenosis, lumbar region without neurogenic claudication
CPT/HCPCS: 80048; 85025; 85610; 85730; 93005; 93010

== ENCOUNTER 2018-08-17 08:00 | Inpatient (IN) | payer MEDICARE ==
[2018-08-17 08:16] VITALS: BMI 33.5
[2018-08-20] MEDS ORDERED: Clindamycin/D5W 900 mg/50 ml Premix Bag ONE (08:39)
[2018-08-20] MEDS ORDERED: Levofloxacin 500 mg/D5W 100 ml Premix Bag ONE (08:39)
[2018-08-20] MEDS ORDERED: Thrombin 5000 UNITS/5 ML VIAL ONE (09:17)
[2018-08-20] MEDS ORDERED: Sodium Chloride 0.9% 10 ML ONE (09:17)
[2018-08-20] MEDS ORDERED: HYDROmorphone 2 MG/ML VIAL ONE ×2 (10:13→14:24)
[2018-08-20] MEDS ORDERED: Midazolam HCl 2 mg/2 ml Vial ONE (10:32)
--- NOTE | 2018-08-20 14:07 | OP ---
DATE OF PROCEDURE: 08/20/2018 LOCATION: OR 12. WOUND CLASSIFICATION: Type 1 wound. LASER MACHINE OPERATOR: Topher Diaz PA-C PREPROCEDURE DIAGNOSES: L4-L5 synovial cyst with prior lumbar laminectomy, right L5-S1 facet hypertrophy, and compression of the right S1 nerve root. POSTPROCEDURE DIAGNOSES: L4-L5 synovial cyst with prior lumbar laminectomy, right L5-S1 facet hypertrophy, and compression of the right S1 nerve root. PROCEDURES PERFORMED: 1. L4-L5 bilateral synovial cyst resection, decompression of common dural tube. 2. Right L5-S1 hemilaminotomy, foraminotomy, decompression of the traversing right S1 nerve root. DESCRIPTION OF PROCEDURE: After informed consent was obtained from the patient, he was brought to the OR. Proper patient, pause, and identification were carried out. Using a portion of the prior midline lumbar wound, a linear lloyd was made. This area was sterilely cleansed, prepared, and draped. Proper patient, pause, and identification were carried out. He was placed under excellent endotracheal anesthesia and proper pause, the patient identification occurred with sterile cleansing, preparation, and draping the wound was then opened with a combination of sharp, monopolar, and blunt dissection. An exuberant scar tissue was encountered from early the surface all the way down to the L4-L5 and S1 bony defects. Localization confirmed our area of interest, we then performed L4-L5 revision laminectomies for synovial cyst resection bilaterally. This was done with excellent decompression of the common dural tube in both L4 and L5 nerve roots. There was no spinal fluid leak. We then turned our attention to the right L5-S1 segment. A revision right L5-S1 hemilaminotomy and foraminotomy was performed with excellent decompression of the right S1 nerve root. Copious irrigation occurred throughout as did maximizing hemostasis. The wound was then closed in anatomic layers following sprinkling of vancomycin powder. The patient emerged from anesthesia. Job ID: [id number]
[2018-08-20] MEDS ORDERED: Ondansetron PF 4 MG/2 ML Vial IVP PRN (14:16)
[2018-08-20] MEDS ORDERED: Bisacodyl 10 MG SUPP PR PRN (14:16)
[2018-08-20] MEDS ORDERED: Milk Of Magnesia 30 ML UDCUP PO PRN (14:16)
[2018-08-20] MEDS ORDERED: Fleet Enema 133 ML BOT PR PRN (14:16)
[2018-08-20] MEDS ORDERED: Mag-Al 1200 mg/1200 mg/30 ML UDCUP PO PRN (14:16)
[2018-08-20] MEDS ORDERED: ePHEDrine 50 MG/ML VIAL ONE (14:55)
[2018-08-20] MEDS ORDERED: Dexamethasone 20 MG/5 ML VIAL ONE (14:55)
[2018-08-20] MEDS ORDERED: Ketorolac Tromethamine 30 MG/ML VIAL ONE (14:55)
[2018-08-20] MEDS ORDERED: PHENYLEPHRINE-NS 100 MCG/ML 10 ML SYRINGE ONE (14:55)
[2018-08-20] MEDS ORDERED: Glycopyrrolate 0.2 MG/ML 5 ML SYRINGE ONE (14:55)
[2018-08-20] MEDS ORDERED: Ondansetron PF 4 MG/2 ML Vial ONE (14:55)
[2018-08-20] MEDS ORDERED: Lidocaine 1% PF 5 ML VIAL ONE (14:55)
[2018-08-20] MEDS ORDERED: Rocuronium Bromide 10 MG/ML (10ML VIAL) ONE (14:55)
[2018-08-20] MEDS ORDERED: PROPOFOL 200 MG/20 ML VIAL ONE (14:55)
[2018-08-20] MEDS ORDERED: Meperidine HCl/PF 25 MG/ML VIAL SLOW IVP PRN (15:27)
[2018-08-20] MEDS ORDERED: Promethazine HCl 25 MG/ML VIAL SLOW IVP PRN (15:27)
[2018-08-20] MEDS ORDERED: HYDROmorphone 2 MG/ML VIAL SLOW IVP PRN (15:27)
[2018-08-20] MEDS ORDERED: Promethazine HCl 25 MG/ML VIAL IM PRN (15:27)
[2018-08-20] MEDS ORDERED: Ondansetron HCl/PF 4 MG/2 ML Vial IVP PRN (15:27)
[2018-08-20] MEDS: Sodium Chloride 0.9% 1,000 ML IV SCH (17:57)
[2018-08-20] MEDS: Clindamycin/D5W 900 MG in Premix Bag 1 BAG IVPB SCH (17:57)
[2018-08-20] MEDS: Morphine 2 MG/ML SYRINGE SLOW IVP PRN (18:45)
[2018-08-20] MEDS: Glimepiride 4 MG TAB PO SCH (21:41)
[2018-08-20] MEDS: Acetaminophen 325 MG TAB PO PRN (21:41)
[2018-08-20] MEDS: cloNIDine 0.1 MG TAB PO SCH (21:42)
[2018-08-20] MEDS: hydrALAZINE 25 MG TAB PO SCH (21:42)
[2018-08-20] MEDS: tiZANidine HCl 4 MG TAB PO PRN (21:42)
[2018-08-21] MEDS: traMADol HCl 50 MG TAB PO PRN ×3 (01:11→18:16)
[2018-08-21] MEDS: Clindamycin/D5W 900 MG in Premix Bag 1 BAG IVPB SCH (01:11)
[2018-08-21] MEDS: Sodium Chloride 0.9% 1,000 ML IV SCH ×2 (01:12→13:59)
[2018-08-21] MEDS: Lisinopril/Hydrochlorothiazide 20/25 mg Tablet PO SCH (08:14)
[2018-08-21] MEDS: Glimepiride 4 MG TAB PO SCH ×2 (08:14→20:40)
[2018-08-21] MEDS: hydrALAZINE 25 MG TAB PO SCH ×2 (08:15→20:39)
[2018-08-21] MEDS ORDERED: Prevnar 13-Val Conj/PF 0.5 ML SYRINGE IM ONE (09:00)
--- NOTE | 2018-08-21 10:29 | DIS ---
DATE OF ADMISSION: 08/20/2018 DATE OF DISCHARGE: 08/21/2018 Mr. Giron is a 77-year-old man admitted to [facility] by Dr. Valdemar Major on August 20, 2018, with subsequent discharge on August 21, 2018. ADMISSION DIAGNOSIS: Status post lumbar disk decompression. DISCHARGE DIAGNOSIS: Status post lumbar disk decompression. HOSPITAL COURSE: Uncomplicated. He had no complications ordered and overall tolerated his one night stay well. He is discharged in good condition with 2-week outpatient followup plan. Job ID: [id number]
[2018-08-21] MEDS: Acetaminophen 325 MG TAB PO PRN ×2 (11:30→18:16)
[2018-08-21] MEDS: tiZANidine HCl 4 MG TAB PO PRN ×2 (13:19→20:38)
[2018-08-21] MEDS: metFORMIN 500 MG TAB PO SCH (16:46)
[2018-08-21] MEDS: cloNIDine 0.1 MG TAB PO SCH (20:37)
[2018-08-22] MEDS: Sodium Chloride 0.9% 1,000 ML IV SCH ×2 (00:41→14:29)
[2018-08-22] MEDS: traMADol HCl 50 MG TAB PO PRN ×3 (06:16→17:37)
[2018-08-22] MEDS: tiZANidine HCl 4 MG TAB PO PRN ×2 (06:21→17:38)
[2018-08-22] MEDS: Morphine 2 MG/ML SYRINGE SLOW IVP PRN ×2 (08:04→20:32)
[2018-08-22] MEDS: metFORMIN 500 MG TAB PO SCH ×2 (08:08→17:39)
[2018-08-22] MEDS: hydrALAZINE 25 MG TAB PO SCH ×2 (08:08→20:32)
[2018-08-22] MEDS: Glimepiride 4 MG TAB PO SCH ×2 (08:08→20:32)
[2018-08-22] MEDS: Lisinopril/Hydrochlorothiazide 20/25 mg Tablet PO SCH (08:09)
--- NOTE | 2018-08-22 10:58 | PRG ---
DATE OF SERVICE: Mr. Giron is now 3 days status post synovial cyst resection. He is doing quite well yesterday and ready for discharge, at which time after mobilization, he started experiencing fairly significant axial back pain. This remained problematic enough that he needed another night. I met with him this morning, where he denies any leg pain. He does report fairly substantial back pain. He has been up in a chair this morning. His incision is intact, but slightly weepy. We will continue to monitor this. He will likely need another day today for improved pain control and mobilization. Job ID: [id number]
[2018-08-22] MEDS: cloNIDine 0.1 MG TAB PO SCH (20:32)
[2018-08-23] MEDS: Sodium Chloride 0.9% 1,000 ML IV SCH ×2 (04:22→16:48)
[2018-08-23] MEDS: traMADol HCl 50 MG TAB PO PRN ×3 (05:57→20:02)
[2018-08-23] MEDS: tiZANidine HCl 4 MG TAB PO PRN ×2 (06:51→15:19)
--- NOTE | 2018-08-23 07:36 | PRG ---
DATE OF SERVICE: 08/22/2018 Mr. Giron is postop day 2 following lumbar synovial cyst resection with Dr. Major. He had been doing well throughout the day yesterday, but then by the afternoon started to have severe what he describes as stabbing pain around the incision and had needed to use IV morphine again. His incision site is also draining some. Upon inspection, this looks to be very minimal serosanguineous drainage and will just need to continue to keep pressure dressings on. I have no other significant concerns from a wound issue and his pain is likely inflammatory in nature. We will check his lab work and then likely add a few doses of Toradol to see if we can get him more comfortable. I do not believe that he will be safe enough to go home today given his pain level and reduced mobility at the present time. We will continue to follow. Job ID: [id number]
[2018-08-23] MEDS: metFORMIN 500 MG TAB PO SCH ×2 (08:25→17:53)
[2018-08-23] MEDS: Glimepiride 4 MG TAB PO SCH ×2 (08:25→20:02)
[2018-08-23] MEDS: hydrALAZINE 25 MG TAB PO SCH ×2 (08:26→20:01)
[2018-08-23] MEDS: Lisinopril/Hydrochlorothiazide 20/25 mg Tablet PO SCH (08:26)
[2018-08-23] MEDS: Morphine 2 MG/ML SYRINGE SLOW IVP PRN (09:31)
--- NOTE | 2018-08-23 09:56 | PRG ---
DATE OF SERVICE: 08/23/2018 This is Topher Diaz PA-C dictating a report for Valdemar Major MD. Mr. Giron is now postoperative day 3, having undergone multilevel lumbar laminectomies with revision hemilaminotomy. Axial back pain has been the main complaint for the patient over the past 24 hours. He does have some occasional right anterior thigh pain, though notes this has very much improved compared to his preoperative pain. He has been ambulating with physical therapy. I believe he might have overdone his activity on Thursday, which is resulting in his pain today. His daughter is at bedside and we discussed a postoperative recovery. Over the past 2 days, the patient has had drainage from his incision. He is also on DMARDs for his ulcerative colitis and he is diabetic. At this time, we will continue to maximize pain control including tramadol and muscle relaxants. I believe that the patient given his continued pain control and limited mobility, would benefit from inpatient rehab and I have placed a consult for this. We will check on him tomorrow. We will see how he does through today. Perhaps if his pain control significantly improves as well as his mobility, then we may discuss home with home health, but again we will screen him for inpatient rehab. He remains with good strength in the bilateral lower extremities. His incision is covered with clean dry gauze and tape and when this is removed, saturation to 4x4 gauze, but nothing through the bandage. We will begin him on some oral antibiotics as a prophylactic measure. Otherwise, the patient is slowly moving in the right direction. Please call with any changes in patient's neurologic status. Job ID: [id number]
[2018-08-23] MEDS: Acetaminophen 325 MG TAB PO PRN (15:19)
[2018-08-23 19:29] VITALS: BP 112/67; TEMP 98.7
[2018-08-23] MEDS: cloNIDine 0.1 MG TAB PO SCH (20:01)
== END 2018-08-23 20:14 | DRG 516 ==
LOC: SURG A 08-20 08:04 → SJJU 08-20 15:26
PROVIDERS: ADMIT Surgery; ATTEND Surgery
PROC: 01NB0ZZ Release Lumbar Nerve, Open Approach (ICD-10-PCS; principal; 2018-08-20)
PROC: 01NR0ZZ Release Sacral Nerve, Open Approach (ICD-10-PCS; 2018-08-20)
DX: M48.07 Spinal stenosis, lumbosacral region (principal); K51.90 Ulcerative colitis, unspecified, without complications; M54.17 Radiculopathy, lumbosacral region; I25.10 Atherosclerotic heart disease of native coronary artery without angina pectoris; M19.90 Unspecified osteoarthritis, unspecified site; Z88.0 Allergy status to penicillin; D45 Polycythemia vera; Z88.8 Allergy status to other drugs, medicaments and biological substances; E11.9 Type 2 diabetes mellitus without complications; Z79.899 Other long term (current) drug therapy; Z79.84 Long term (current) use of oral hypoglycemic drugs
CPT/HCPCS: 36416; 76000; 80048; 85025; 85610; 85730; 90471; 90670; 93005; 93010; G0009; J1100; J1170; J1885; J1956; J2001; J2250; J2270; J2405; J2704; J3370; J3490

== ENCOUNTER 2018-09-17 13:24 | Observation (INO) | payer MEDICARE ==
[2018-09-17] MEDS ORDERED: ISOVUE-370 76%-LOCM 1 ML ONE (13:35)
[2018-09-17] MEDS ORDERED: Ondansetron PF 4 MG/2 ML Vial ONE ×2 (13:54→17:34)
[2018-09-17] MEDS ORDERED: Morphine 4 MG/ML VIAL ONE ×2 (13:54→17:34)
[2018-09-17 14:09] LABS: #Eosinphils 0.3 thou/uL (0.0-0.7); #Lymphocytes 2.5 thou/uL (1.20-3.40); #Monocytes 0.8 thou/uL (0.11-0.59); #Neutrophils 10.1 thou/uL (1.40-6.50); %Basophils 0.2 % (0.0-1.0); %Eosinophils 2.3 % (0.0-10.0); %Lymphocytes 18.4 % (21.0-51.0); %Monocytes 5.8 % (0.0-10.0); %Neutrophils 73.3 % (42.0-75.0); Hemoglobin 15.2 g/dL (14.0-18.0); Mean Corpuscular HGB CONC 33.6 g/dL (32.0-36.0); Mean Corpuscular Hemoglobin 31.4 pg (27.0-31.0); Mean Corpuscular Volume 93.5 fL (78.0-98.0); Mean Platelet Volume 9.3 fL (7.4-10.4); Platelet Count 232 thou/uL (130-400); Red Blood Cell (RBC) Count 4.84 mill/uL (4.70-6.10); White Blood Cell (WBC) Count 13.8 thou/uL (4.8-10.8)
--- NOTE | 2018-09-17 14:22 | RAD ---
SINGLE VIEW OF THE CHEST: Comparison: 02-16-18 History: Chest pain. FINDINGS: Single view of the chest shows a normal sized cardiomediastinal silhouette. There is no evidence of c onsolidation, mass, or pleural effusion. The bones are unremarkable. IMPRESSION: No evidence of acute cardiopulmonary disease. POS: [facility]
[2018-09-17 14:35] LABS: ALT (SGPT) 28 U/L (8-55); AST (SGOT) 23 U/L (5-34); Albumin 4.2 g/dL (3.4-4.8); Alkaline Phosphatase 48 U/L (40-150); Anion Gap 14 mmol/L (10-20); BUN (Urea Nitrogen) 20 mg/dL (8.4-25.7); Bilirubin, Total 0.4 mg/dL (0.2-1.2); Calc. Creatinine Clearance 0 mL/min (70-130); Calcium 9.8 mg/dL (7.8-10.44); Carbon Dioxide 24 mmol/L (23-31); Chloride 102 mmol/L (98-107); Estimated GFR-MDRD 87; Globulin 3.4 g/dL (2.4-3.5); Glucose 250 mg/dL (83-110); Potassium 3.4 mmol/L (3.5-5.1); Protein, Total 7.6 g/dL (5.8-8.1); Sodium 137 mmol/L (136-145)
--- NOTE | 2018-09-17 16:38 | CT ---
CT PULMONARY ANGIOGRAM WITH IV CONTRAST AND 3D MIP RECONSTRUCTIONS: 09/17/18 PROVIDED CLINICAL HISTORY: Chest pain. FINDINGS: Comparison is made with the chest CT dated 10/19/15. The heart, pericardium, and great vessels demonstrate an unremarkable CT appearance with the exceptio n of vascular calcification including coronary calcium. There is no evidence for central or segmental pulmonary embolus. Prominent by number but not pathologically enlarged mediastinal and hilar lymph nodes are redemonstra rachel, similar to the prior study. The lungs are free of significant opacity. No pleural fluid or pneumothorax apparent. The airway appears patent and of normal caliber. The visualized portions of the upper abdomen demonstrate no acute abnormality. The osseous structures demonstrate no concerning lytic or blastic lesions. IMPRESSION: 1. No evidence for central or segmental pulmonary embolus. 2. Vascular calcification including coronary calcium. 3. Mediastinal and hilar lymph node prominence, similar to the prior examination, the etiology a nd significance of which are uncertain. POS: [facility]
[2018-09-17] MEDS ORDERED: Aspirin Chewable 81 MG TAB ONE (17:34)
[2018-09-17 18:27] LABS: Troponin I Less than 0.010 ng/mL (< 0.028)
[2018-09-17] MEDS ORDERED: Acetaminophen 325 MG TAB PO PRN (18:56)
[2018-09-17] MEDS ORDERED: Ondansetron PF 4 MG/2 ML Vial IVP PRN (18:56)
[2018-09-17] MEDS ORDERED: Ondansetron ODT 4 MG TAB SL PRN (18:56)
[2018-09-17 19:07] VITALS: BMI 27.4
[2018-09-17] MEDS ORDERED: Acetaminophen/Codeine 30-300mg Tablet PO PRN ×3 (20:47→22:36)
[2018-09-17 21:24] LABS: Troponin I Less than 0.010 ng/mL (< 0.028)
[2018-09-17] MEDS ORDERED: Nitroglycerin 0.4 MG TAB (25 Tab Bottle) PO PRN (22:33)
[2018-09-17] MEDS ORDERED: traMADol HCl 50 MG TAB PO PRN (22:36)
[2018-09-17] MEDS ORDERED: tiZANidine HCl 4 MG TAB PO PRN (22:36)
[2018-09-17] MEDS ORDERED: Ibuprofen/Diphenhydramine Cit [Advil Pm Caplet] PO PRN (23:02)
[2018-09-18 06:13] LABS: #Eosinphils 0.5 thou/uL (0.0-0.7); #Monocytes 0.9 thou/uL (0.11-0.59); #Neutrophils 7.5 thou/uL (1.40-6.50); %Basophils 0.4 % (0.0-1.0); %Eosinophils 4.9 % (0.0-10.0); %Lymphocytes 18.5 % (21.0-51.0); %Monocytes 8.1 % (0.0-10.0); %Neutrophils 68.1 % (42.0-75.0); Hemoglobin 14.9 g/dL (14.0-18.0); Mean Corpuscular HGB CONC 34.1 g/dL (32.0-36.0); Mean Corpuscular Hemoglobin 32.3 pg (27.0-31.0); Mean Corpuscular Volume 94.5 fL (78.0-98.0); Mean Platelet Volume 8.4 fL (7.4-10.4); Platelet Count 214 thou/uL (130-400); RBC Distribution Width 12.8 % (11.5-14.5); Red Blood Cell (RBC) Count 4.62 mill/uL (4.70-6.10); White Blood Cell (WBC) Count 10.9 thou/uL (4.8-10.8)
[2018-09-18 06:33] LABS: Anion Gap 11 mmol/L (10-20); BUN (Urea Nitrogen) 18 mg/dL (8.4-25.7); Calc. Creatinine Clearance 136 mL/min (70-130); Calcium 9.2 mg/dL (7.8-10.44); Carbon Dioxide 25 mmol/L (23-31); Chloride 103 mmol/L (98-107); Estimated GFR-MDRD Greater than 90; Glucose 142 mg/dL (83-110); Potassium 3.3 mmol/L (3.5-5.1); Sodium 136 mmol/L (136-145)
[2018-09-18] MEDS ORDERED: Glimepiride 4 MG TAB PO SCH (07:30)
[2018-09-18] MEDS ORDERED: Lisinopril/Hydrochlorothiazide 20/25 mg Tablet PO SCH (09:00)
[2018-09-18] MEDS ORDERED: Mesalamine [Apriso] 1.5 GM PO SCH (09:00)
[2018-09-18] MEDS ORDERED: hydrALAZINE 25 MG TAB PO SCH (09:00)
[2018-09-18] MEDS ORDERED: Enoxaparin Sodium 40 MG/0.4 ML SYRINGE SC SCH ×2 (09:00)
[2018-09-18] MEDS ORDERED: ADENOSINE 60 MG/20 ML VIAL ONE (09:52)
[2018-09-18 12:28] VITALS: TEMP 98.4
--- NOTE | 2018-09-18 13:16 | NM ---
NUCLEAR MEDICINE CARDIAC STRESS WITH EF AND WALL MOTION: HISTORY: Hypertension. Diabetes. Chest pain. COMPARISON: 10/22/2007 TECHNIQUE: The patient was administered 9.6 millicuries of technetium 99m sestamibi for rest imaging and 30 mill icuries of technetium 99m sestamibi for stress imaging. Cardiac gating was performed. FINDINGS: There appears to be a homogeneous distribution of the radiotracer in the left ventricle. No fixed de fect or reversibility. TID is 1.12. End-diastolic volume is 88 mL. End-systolic volume is 39 mL. CARDIAC GATING: Normal motion and wall thickening. Ejection fraction is 56%. IMPRESSION: 1. No reversibility or fixed defect. 2. Ejection fraction 56%. POS: [facility]
[2018-09-18 14:19] VITALS: BP 139/65
[2018-09-18] MEDS ORDERED: Rosuvastatin 5 MG TAB PO SCH (21:00)
[2018-09-18] MEDS ORDERED: Empagliflozin [Jardiance] 25 MG PO SCH (21:00)
--- NOTE | 2018-09-18 23:46 | DIS ---
DATE OF ADMISSION: 09/17/2018 DATE OF DISCHARGE: 09/18/2018 PRIMARY CARE PHYSICIAN: Dr. Bradshaw. CHIEF COMPLAINT ON ADMISSION: Chest pain. DISCHARGE DIAGNOSES: 1. Chest pain, acute coronary syndrome ruled out, myocardial perfusion imaging negative for reversible ischemia. 2. Coronary calcification per CT, no reversible ischemia per myocardial perfusion imaging, normal ejection fraction. 3. Recent lumbar disk decompression August 2018, no exertional chest discomfort during rehab. 4. Polycythemia vera, followed by Dr. Figueroa. 5. Type 2 diabetes mellitus. 6. Hypertension. 7. 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 BRIEF HOSPITAL COURSE: The patient is a very pleasant 77-year-old gentleman with past medical history significant for the above, who presented to the hospital with complaints of chest pain. The patient states that he had just eaten a big lunch consisting of a hamburger. He was back at his desk at his office when he experienced some chest pain that seemed to radiate into the neck along with some diaphoresis. He reports shortness of breath along with this, describing that as a sensation where he could not take a deep breath because of the pain. His special weapons unit officer noticed his distress, and took him to the emergency department for further workup and treatment. In the ED, his initial troponin was negative. EKG showed sinus rhythm, no acute ST or T-wave changes. He was admitted for ACS rule out and further risk stratification. He did undergo a CTA of the chest, which showed no evidence for central or segmental pulmonary embolism, vascular calcification including coronary calcification, medial and hilar lymph node prominence similar to previous exam of uncertain significance. Given his multiple risk factors, it was deemed appropriate to further risk stratify with a nuclear stress test, which was performed this morning. MPI showed no evidence of reversible ischemia, and normal EF. The patient has had no further chest discomfort since his admission. He states that he has been able to undergo rehab, which is fairly rigorous physical activity, and has had no exertional chest discomfort. As mentioned, ACS ruled out, MPI negative for reversible ischemia. DISCHARGE DISPOSITION: Home. DISCHARGE CONDITION: Stable. DISCHARGE INSTRUCTIONS AND FOLLOWUP: The patient will continue his home medication regimen. I have explained the differential diagnosis, including possible esophageal spasm. I have advised the patient to follow up with his primary care doctor, Dr. Bradshaw and discuss possible implementation of a baby aspirin, if deemed appropriate. He has had some ulcerative colitis and bleeding issues in the past, so I will defer this to Dr. Bradshaw. He may benefit from a routine cardiology followup as well given his previous diagnosis of [id number] nonocclusive carotid artery stenosis and coronary calcium noted on CT, although no evidence of physiologic/reversible ischemia on nuclear imaging. The patient will be discharged home in good condition today. He has ambulated the halls without issue. He will continue aggressive risk factor modification and control of his diabetes as well. Job ID: [id number]
--- NOTE | 2018-09-19 21:14 | HP ---
PRIMARY CARE PHYSICIAN: Dr. Roland Bradshaw. CODE STATUS: Full code. TIME OF EVALUATION: 9:00 p.m. CHIEF COMPLAINT: Evaluation of neck pain. HISTORY OF PRESENT ILLNESS: This is a 77-year-old male patient with past medical history of diabetes, hypertension, ulcerative colitis, came to the hospital after having neck pain that was located in the right side and right upper chest area. Symptoms were severe with generalized pain, with no clear triggers, no alleviating factors except some worsening when taking deep breath. Actually, the pain is also by exertion. By the time of my examination, he was in the long term; however, he reports that it has been on and off . REVIEW OF SYSTEMS: CONSTITUTIONAL: No fever, chills, or generalized weakness. RESPIRATORY: No cough, sputum production, or shortness of breath. CARDIOVASCULAR: The patient has upper chest pain on the right side as mentioned in the HPI. No palpitations. GASTROINTESTINAL: No nausea, vomiting, diarrhea, or abdominal pain. MANAGER FITNESS: No dizziness, headache or feeling lightheaded. GENITOURINARY: No burning on urination. EXTREMITIES: No leg swelling. All other systems were reviewed and negative except for the findings mentioned above. PAST MEDICAL HISTORY: As mentioned in the HPI. PAST SURGICAL HISTORY: , cyst removal. PSYCHIATRIC HISTORY: No previous psych history. SOCIAL HISTORY: lives at home alone. The patient drinks socially, history of daily drinking. Denies drug use. The patient has no smoking history. KNOWN ALLERGIES: hydrocodone, insulin, penicillins. REPORTED MEDICATIONS: 1. Apriso. 2. Lisinopril. 3. Hydrochlorothiazide. 4. Toprol-XL. 5. Metformin. 6. Humira. 7. Hydroxyurea. 8. Crestor. 9. Farxiga. PHYSICAL EXAMINATION: VITAL SIGNS: On presentation, blood pressure 162/76, heart rate 97, respiratory rate 12, temperature 99.1, pain was 10/10, oxygen saturation was 96% on room air. GENERAL: The patient is alert, oriented, not in acute distress. HEENT: Eyes, normal conjunctivae. Moist oral mucosa. Anicteric. No JVD. RESPIRATORY: Bilateral air entry. No rales or wheezes. Symmetric expansion. CARDIOVASCULAR: Normal rate, regular rhythm. No murmurs. No gallop. No edema. ABDOMEN: Soft. Normal bowel sounds. MUSCULOSKELETAL: Baseline range of motion and strength. SKIN: Warm, intact. No pallor. No rash. No redness. Capillary refill seems to be intact. NEUROLOGIC: No evidence of any new focal weakness. Cranial nerves seems to be intact. PSYCH: The patient is in good mood. No anxiety. Optimal judgment. DIAGNOSTIC DATA: EKG was reviewed. The patient has normal sinus rhythm with a rate of 100. No ST elevation ME. Radiology, chest films are negative. No infiltrates, no pneumothorax. No cardiomegaly. Chest CT negative with contrast. No pulmonary embolism. No thoracic aortic dissection. No hemothorax. No mass, infiltrates, or effusion. LABORATORY DATA: Labs were reviewed. The patient has white count 13.8, hemoglobin 15.2, MCV 93.5, platelet count 232. Coagulation, D-dimer 1.0. Chemistry; sodium 137, potassium 3.4, chloride 102, carbon dioxide 24, anion gap 14, BUN 20, creatinine 0.8, GFR 87, glucose 250, calcium 9.8, total bilirubin 0.4, AST 23, ALT 28. Troponin was negative x3. Serum total protein 7.6. ASSESSMENT AND PLAN: The patient will be placed in the hospital with following medical problems: 1. Chest pain, rule out acute coronary syndrome. The patient has severe chest pain in right upper chest. CT angio negative for CT. Troponins being negative, we will do stress test in the morning. Rule out any underlying coronary artery disease. The patient agrees for it. We will treat accordingly. 2. Leukocytosis. White count 13.8. We will monitor and treat accordingly. No evidence of infection at this point. 3. Hypokalemia, potassium 3.4. We will replace electrolytes as needed. 4. Elevated D-dimer of 1.0. CT angio was negative for pulmonary embolism. 5. Hyperglycemia due to uncontrolled diabetes, blood sugar of 215, reconcile home medications. 6. Deep venous thrombosis prophylaxis. 7. Uncontrolled hypertension, heart rate 162. We will reconcile home medications and adjust treatment as needed. Job ID: [id number]
== END 2018-09-18 14:31 | disposition home or self-care (01) ==
LOC: ERS 13:24 → 2SW 19:04
PROVIDERS: ADMIT Family Medicine; ATTEND Family Medicine
DX: R07.9 Chest pain, unspecified (principal); I25.10 Atherosclerotic heart disease of native coronary artery without angina pectoris; I25.84 Coronary atherosclerosis due to calcified coronary lesion; D45 Polycythemia vera; E11.65 Type 2 diabetes mellitus with hyperglycemia; I10 Essential (primary) hypertension; I65.29 Occlusion and stenosis of unspecified carotid artery; K51.90 Ulcerative colitis, unspecified, without complications; D72.829 Elevated white blood cell count, unspecified; E87.6 Hypokalemia; R79.1 Abnormal coagulation profile; F17.220 Nicotine dependence, chewing tobacco, uncomplicated; Z79.84 Long term (current) use of oral hypoglycemic drugs; Z79.899 Other long term (current) drug therapy; Z88.0 Allergy status to penicillin; Z88.5 Allergy status to narcotic agent; Z88.8 Allergy status to other drugs, medicaments and biological substances; Z91.018 Allergy to other foods
CPT/HCPCS: 71045; 71275; 78452; 80048; 80053; 84484 ×2; 85025 ×2; 85379; 93005; 93017; 94760; 96372; 96374; 96375; 96376; 99285; A9500; G0378 ×3; 36415; J0153; J1650; J2270; J2405; Q9966

== ENCOUNTER 2018-09-27 10:32 | Outpatient (CLI) | payer MEDICARE ==
--- NOTE | 2018-09-27 11:58 | MRI ---
MRI CERVICAL SPINE WITHOUT CONTRAST: HISTORY: Neck pain. Fall. Dizziness.. COMPARISON: 02/18/2018. FINDINGS: Appropriate T1 marrow signal intensity of the cervical vertebrae. Cervical spine vertebral body heigh t is maintained. No fracture. No significant STIR hyperintensity to suggest vertebral body edema or ligamentous injury. Visualized brain parenchyma, cervicomedullary junction, cervical cord and the upper thoracic cord hav e normal size and signal intensity. C2-C3: Central disc protrusion contacting the ventral cervical cord, without cord signal abnormality. Mild central canal stenosis. Right neural foramen is patent. Moderate left foraminal narrowing due to uncal vertebral hypertrophy. C3-C4: Broad-based disc bulge, along with disc desiccation and mild loss of disc space height. Minima l mass effect upon the ventral cord, without cord hyperintensity. Mild central canal stenosis. Mild bilateral foraminal narrowing due to uncovertebral hypertrophy. C4-C5: Desiccation with mild loss of disc space height. Central disc protrusion abuts the thecal sac. No mass effect upon the cervical cord. No significant central canal stenosis. Bilaterally, neural foramina are patent. C5-C6: Desiccation with mild loss of disc space height. Broad-based disk-osteophyte complex with a le ft paracentral component. Mass effect and deformity the cervical cord. Moderate to severe central canal stenosis. No cord hyperintensity. Degenerative changes in bilateral uncal vertebral joints resu lt in moderate right and moderate to severe left neural foraminal narrowing. C6-C7: Central/left paracentral disc protrusion. Deformity the left hemicord, without cord hyperinten sity. Moderate central canal stenosis. Moderate right and mild to moderate left foraminal narrowing due to uncovertebral hypertrophy. C7-T1: Desiccation with mild loss of disc space height. Central disc protrusion with mild central can al stenosis. Minimal deformity of the left hemicord. Bilaterally, neural foramina are patent. IMPRESSION: Multilevel degenerative changes of the cervical spine as described above. The greatest degree of cent ral canal stenosis is at C5-C6. Transcribed Date/Time: 09/27/2018 12:14 PM
== END 2018-09-27 10:33 | disposition home or self-care (01) ==
LOC: TBSIIMAG 10:32
PROVIDERS: ATTEND Surgery
DX: M47.22 Other spondylosis with radiculopathy, cervical region (principal); M48.02 Spinal stenosis, cervical region
CPT/HCPCS: 72141

== ENCOUNTER 2018-12-08 09:42 | Outpatient (CLI) | payer MEDICARE ==
--- NOTE | 2018-12-10 15:17 | RAD ---
MODIFIED BARIUM SWALLOW: HISTORY: Dysphagia, oral phase and pharyngeal phase. Gastroesophageal reflux disease with esophagitis. FINDINGS: This examination was performed by speech therapy and a videotape was performed. The patient was admi nistered varying consistencies of barium during the exam. There is difficulty in formation of the kwabena us into the posterior pharynx. There is premature spill of contrast into the vallecula prior to initi ation of the swallowing mechanism. An episode of penetration was noted during the exam with a suggest ed episode of trace aspiration. No appropriate cough reflux was elicited. Multilevel degenerative changes are seen in the cervical spine. A 12.5 mm barium tablet was administe red during the exam, which traverses the upper esophagus freely without holdup. IMPRESSION: Episode of penetration as well as suggested trace aspiration during the examination. POS: ALEX
== END 2018-12-08 09:43 | disposition home or self-care (01) ==
PROVIDERS: ATTEND Otolaryngology Otolaryngic Allergy
DX: R13.10 Dysphagia, unspecified (principal)
CPT/HCPCS: 74230

== ENCOUNTER 2022-04-04 12:38 | Outpatient (CLI) | payer MEDICARE | END 2022-04-04 12:39 | disposition home or self-care (01) | LOC: BICCT 12:38 | PROVIDERS: ATTEND Surgery | DX: M43.16 Spondylolisthesis, lumbar region (principal); M48.061 Spinal stenosis, lumbar region without neurogenic claudication; M48.07 Spinal stenosis, lumbosacral region; M48.05 Spinal stenosis, thoracolumbar region; Z98.890 Other specified postprocedural states | CPT/HCPCS: 72131 ==

== ENCOUNTER 2022-05-26 13:07 | Outpatient (CLI) | payer MEDICARE | END 2022-05-26 13:08 | disposition home or self-care (01) | LOC: LABBT 13:07 | PROVIDERS: ATTEND Surgery | DX: Z01.810 Encounter for preprocedural cardiovascular examination (principal); M54.16 Radiculopathy, lumbar region; M48.061 Spinal stenosis, lumbar region without neurogenic claudication; M71.38 Other bursal cyst, other site | CPT/HCPCS: 80048; 85027; 85610; 85730; 86850; 86900; 86901; 93005; 93010 ==

== ENCOUNTER 2022-05-29 07:26 | Inpatient (IN) | payer MEDICARE ==
[2022-05-26 15:21] LABS: Hemoglobin 16.5 g/dL (13.5-17.5); Mean Corpuscular Hemoglobin 31.8 pg (27.0-33.0); Mean Corpuscular Volume 93.4 fl (81.2-95.1); Mean Platelet Volume 10.7 fl (7.4-10.4); Platelet Count 283 10x3/uL (150-450); RBC Distribution Width 14.3 % (11.5-14.5); Red Blood Cell (RBC) Count 5.19 10x6/uL (4.32-5.72); White Blood Cell (WBC) Count 7.3 10x3/uL (3.5-10.5)
[2022-05-26 15:41] LABS: PTT 28.6 sec (22.0-33.0); Prothrombin Time 10.6 sec (9.5-12.1)
[2022-05-26 15:48] LABS: Anion Gap 16 mmol/L (10-20); BUN (Urea Nitrogen) 21 mg/dL (8.4-25.7); Calc. Creatinine Clearance 0 mL/min (70-130); Calcium 9.6 mg/dL (7.8-10.44); Carbon Dioxide 20 mmol/L (23-31); Chloride 104 mmol/L (98-107); Estimated GFR 95; Glucose 138 mg/dL (83-110); Potassium 4.4 mmol/L (3.5-5.1); Sodium 136 mmol/L (136-145)
[2022-05-29] MEDS ORDERED: Levofloxacin 500 mg/D5W 100 ml Premix Bag ONE (08:55)
[2022-05-29] MEDS ORDERED: Clindamycin/D5W 900 mg/50 ml Premix Bag ONE (08:55)
[2022-05-29] MEDS ORDERED: Vancomycin 1 GM VIAL ONE (09:15)
[2022-05-29] MEDS ORDERED: Thrombin 5000 UNITS/5 ML VIAL ONE (09:15)
[2022-05-29] MEDS ORDERED: Fentanyl 250 MCG/5 ML VIAL ONE (09:43)
[2022-05-29] MEDS ORDERED: Lidocaine 1% PF 5 ML VIAL ONE (09:55)
[2022-05-29] MEDS ORDERED: Rocuronium Bromide 10 MG/ML (10ML VIAL) ONE (09:55)
[2022-05-29] MEDS ORDERED: Phenylephrine 10 MG/ML VIAL ONE (09:55)
[2022-05-29] MEDS ORDERED: Ondansetron PF 4 MG/2 ML Vial ONE (09:55)
[2022-05-29] MEDS ORDERED: Dexamethasone 20 MG/5 ML VIAL ONE (09:55)
[2022-05-29] MEDS ORDERED: Vecuronium 10 MG VIAL ONE (09:55)
[2022-05-29] MEDS ORDERED: PROPOFOL 200 MG/20 ML VIAL ONE (09:55)
[2022-05-29] MEDS ORDERED: PACU-Morphine 4MG/ML VIAL SLOW IVP PRN ×2 (13:07→15:46)
[2022-05-29] MEDS ORDERED: Morphine Sulfate 2 MG/ML SYRINGE SLOW IVP PRN (13:07)
[2022-05-29] MEDS ORDERED: HYDROmorphone 2 MG/ML VIAL SLOW IVP PRN ×2 (13:07→15:46)
[2022-05-29] MEDS ORDERED: Ondansetron HCl/PF 4 MG/2 ML Vial IVP PRN ×2 (13:07→15:46)
[2022-05-29] MEDS ORDERED: Promethazine HCl 25 MG/ML VIAL IM PRN ×2 (13:07→15:46)
[2022-05-29] MEDS ORDERED: diphenhydrAMINE 25 MG CAP PO PRN (15:37)
[2022-05-29] MEDS ORDERED: Morphine 2 MG/ML VIAL SLOW IVP PRN (15:37)
[2022-05-29] MEDS ORDERED: traMADol HCl 50 MG TAB PO PRN (15:37)
[2022-05-29] MEDS ORDERED: Ondansetron PF 4 MG/2 ML Vial IVP PRN (15:37)
[2022-05-29] MEDS ORDERED: Promethazine HCl 12.5 MG in Sodium Chloride 0.9% 50 ML IVPB PRN (15:40)
[2022-05-29] MEDS ORDERED: hydrALAZINE 20 MG/ML VIAL SLOW IVP PRN (15:40)
[2022-05-29] MEDS ORDERED: oxyCODONE 5 MG TAB PO PRN (15:40)
[2022-05-29] MEDS ORDERED: Diazepam 5 MG TAB PO PRN (15:40)
[2022-05-29] MEDS ORDERED: fentaNYL 50 mcg/mL 1 mL Vial ONE ×2 (15:42→15:53)
[2022-05-29] MEDS ORDERED: HYDROmorphone 0.5 MG/0.5 ML SYRINGE ONE (15:52)
[2022-05-29] MEDS ORDERED: Midazolam HCl 2 mg/2 ml Vial ONE (15:53)
[2022-05-29] MEDS ORDERED: Ketorolac Tromethamine 30 MG/ML VIAL ONE (17:01)
[2022-05-29] MEDS ORDERED: Clindamycin/D5W 900 MG in Premix Bag 1 BAG IVPB SCH (18:00)
[2022-05-29 18:19] VITALS: BMI 28.6
[2022-05-29] MEDS: Sodium Chloride 0.9% 1,000 ML IV SCH ×2 (19:28→21:23)
[2022-05-29] MEDS: Ketorolac Tromethamine 30 MG/ML VIAL IVP SCH (19:36)
[2022-05-29] MEDS: hydrALAZINE 25 MG TAB PO SCH (21:16)
[2022-05-29] MEDS: Empagliflozin 25 MG TAB PO SCH (21:16)
[2022-05-29] MEDS: Gabapentin 300 MG CAP PO SCH (21:16)
[2022-05-29] MEDS: Acetaminophen/Codeine 30-300mg Tablet PO PRN (22:07)
[2022-05-30] MEDS: Acetaminophen/Codeine 30-300mg Tablet PO PRN (01:12)
[2022-05-30 05:34] LABS: #Lymphocytes 1.8 thou/uL (1.20-3.40); #Monocytes 1.4 thou/uL (0.11-0.59); #Neutrophils 8.8 thou/uL (1.40-6.50); %Basophils 0.1 % (0.0-1.0); %Eosinophils 0.3 % (0.0-10.0); %Lymphocytes 14.9 % (21.0-51.0); %Monocytes 11.3 % (0.0-10.0); %Neutrophils 73.4 % (42.0-75.0); Hemoglobin 14.2 g/dL (14.0-18.0); Mean Corpuscular HGB CONC 32.6 g/dL (32.0-36.0); Mean Corpuscular Hemoglobin 32.9 pg (27.0-31.0); Mean Platelet Volume 8.1 fL (7.4-10.4); Platelet Count 220 10x3/uL (130-400); RBC Distribution Width 13.2 % (11.5-14.5); Red Blood Cell (RBC) Count 4.33 mill/uL (4.70-6.10)
[2022-05-30] MEDS: Ketorolac Tromethamine 30 MG/ML VIAL IVP SCH ×4 (05:39→18:35)
[2022-05-30] MEDS: Clindamycin/D5W 900 MG in Premix Bag 1 BAG IVPB SCH ×3 (05:40→20:39)
[2022-05-30 06:05] LABS: Anion Gap 17 mmol/L (10-20); BUN (Urea Nitrogen) 25 mg/dL (8.4-25.7); Calc. Creatinine Clearance 111 mL/min (70-130); Calcium 8.7 mg/dL (7.8-10.44); Carbon Dioxide 18 mmol/L (23-31); Chloride 107 mmol/L (98-107); Estimated GFR 93; Glucose 97 mg/dL (83-110); Potassium 4.1 mmol/L (3.5-5.1); Sodium 138 mmol/L (136-145)
[2022-05-30] MEDS: metFORMIN 500 MG TAB PO SCH ×2 (09:52→18:35)
[2022-05-30] MEDS: hydrALAZINE 25 MG TAB PO SCH ×2 (09:53→20:40)
[2022-05-30] MEDS: Gabapentin 300 MG CAP PO SCH ×2 (09:53→20:39)
[2022-05-30] MEDS: Lisinopril/Hydrochlorothiazide 20/25 mg Tablet PO SCH ×2 (09:53→09:55)
[2022-05-30] MEDS: Fluticasone Propionate Nasal Spray 16 gm Bottle NASAL SCH (12:19)
[2022-05-30] MEDS: Sodium Chloride 0.9% 1,000 ML IV SCH (20:38)
[2022-05-30] MEDS: Acetaminophen 325 MG TAB PO PRN (20:42)
[2022-05-30] MEDS: Empagliflozin 25 MG TAB PO SCH (20:43)
[2022-05-31] MEDS: Clindamycin/D5W 900 MG in Premix Bag 1 BAG IVPB SCH ×3 (04:39→20:14)
[2022-05-31] MEDS: Gabapentin 300 MG CAP PO SCH ×2 (08:52→20:15)
[2022-05-31] MEDS: Lisinopril/Hydrochlorothiazide 20/25 mg Tablet PO SCH (08:53)
[2022-05-31] MEDS: metFORMIN 500 MG TAB PO SCH ×2 (08:53→17:45)
[2022-05-31] MEDS: hydrALAZINE 25 MG TAB PO SCH ×2 (08:54→20:14)
[2022-05-31] MEDS: Fluticasone Propionate Nasal Spray 16 gm Bottle NASAL SCH (08:55)
[2022-05-31] MEDS: Sodium Chloride 0.9% 1,000 ML IV SCH (09:00)
[2022-05-31] MEDS: oxyCODONE 5 MG TAB PO PRN ×2 (11:25→17:44)
[2022-05-31] MEDS ORDERED: Bisacodyl 5 MG TAB PO PRN (19:44)
[2022-05-31] MEDS ORDERED: Polyethylene Glycol 3350 17 GM Packet PO PRN (19:44)
[2022-05-31] MEDS: Acetaminophen 325 MG TAB PO PRN ×2 (20:13→23:26)
[2022-05-31] MEDS: Docusate 100 MG CAP PO SCH (20:15)
[2022-05-31] MEDS: Empagliflozin 25 MG TAB PO SCH (20:16)
[2022-06-01] MEDS: Sodium Chloride 0.9% 1,000 ML IV SCH ×3 (00:06→20:24)
[2022-06-01] MEDS: Acetaminophen/Codeine 30-300mg Tablet PO PRN (03:56)
[2022-06-01] MEDS: Clindamycin/D5W 900 MG in Premix Bag 1 BAG IVPB SCH ×2 (04:02→14:13)
[2022-06-01] MEDS: hydrALAZINE 25 MG TAB PO SCH ×2 (09:32→20:42)
[2022-06-01] MEDS: Lisinopril/Hydrochlorothiazide 20/25 mg Tablet PO SCH (09:32)
[2022-06-01] MEDS: metFORMIN 500 MG TAB PO SCH ×2 (09:32→17:01)
[2022-06-01] MEDS: Docusate 100 MG CAP PO SCH ×2 (09:33→20:43)
[2022-06-01] MEDS: Gabapentin 300 MG CAP PO SCH ×2 (09:33→20:43)
[2022-06-01] MEDS: Fluticasone Propionate Nasal Spray 16 gm Bottle NASAL SCH (09:49)
[2022-06-01] MEDS ORDERED: Metamucil PACK PO SCH (11:30)
[2022-06-01] MEDS: Clindamycin 150 MG CAP PO SCH ×2 (13:09→20:44)
[2022-06-01] MEDS: oxyCODONE 5 MG TAB PO PRN ×2 (17:17→22:20)
[2022-06-01] MEDS: Empagliflozin 25 MG TAB PO SCH (20:45)
[2022-06-02] MEDS: Clindamycin 150 MG CAP PO SCH (03:51)
[2022-06-02] MEDS: oxyCODONE 5 MG TAB PO PRN ×2 (05:04→12:06)
[2022-06-02] MEDS: metFORMIN 500 MG TAB PO SCH (08:45)
[2022-06-02] MEDS: Docusate 100 MG CAP PO SCH (08:46)
[2022-06-02] MEDS: Gabapentin 300 MG CAP PO SCH (08:46)
[2022-06-02] MEDS: Fluticasone Propionate Nasal Spray 16 gm Bottle NASAL SCH (08:47)
[2022-06-02] MEDS: hydrALAZINE 25 MG TAB PO SCH (08:52)
[2022-06-02] MEDS: Lisinopril/Hydrochlorothiazide 20/25 mg Tablet PO SCH (08:52)
[2022-06-02] MEDS ORDERED: Metamucil PACK PO SCH (09:00)
[2022-06-02 09:03] VITALS: BP 109/71; TEMP 97.7
[2022-06-02] MEDS: Sodium Chloride 0.9% 1,000 ML IV SCH (13:23)
== END 2022-06-02 15:06 | DRG 455 ==
LOC: SDC 07:26 → MSONC 17:31 → OBSVTOIN 05-30 15:22
PROVIDERS: ADMIT Surgery; ATTEND Surgery
PROC: 0SG00AJ Fusion of Lumbar Vertebral Joint with Interbody Fusion Device, Posterior Approach, Anterior Column, Open Approach (ICD-10-PCS; principal; 2022-05-29)
PROC: 0SG0071 Fusion of Lumbar Vertebral Joint with Autologous Tissue Substitute, Posterior Approach, Posterior Column, Open Approach (ICD-10-PCS; 2022-05-29)
PROC: 01NB0ZZ Release Lumbar Nerve, Open Approach (ICD-10-PCS; 2022-05-29)
PROC: 0SB20ZZ Excision of Lumbar Vertebral Disc, Open Approach (ICD-10-PCS; 2022-05-29)
DX: M48.062 Spinal stenosis, lumbar region with neurogenic claudication (principal); M54.16 Radiculopathy, lumbar region; M71.30 Other bursal cyst, unspecified site; F17.220 Nicotine dependence, chewing tobacco, uncomplicated; F10.10 Alcohol abuse, uncomplicated; E11.65 Type 2 diabetes mellitus with hyperglycemia; Z88.0 Allergy status to penicillin; Z88.5 Allergy status to narcotic agent; Z91.010 Allergy to peanuts; Z79.84 Long term (current) use of oral hypoglycemic drugs; Z79.899 Other long term (current) drug therapy
CPT/HCPCS: 36415; 36416; 80048; 85025; 85027; 85610; 85730; 86850; 86900; 86901; 93970; 96365; 96375; 96376; C1713; C1768; C1776; C1889; G0378; J1100; J1170; J1885; J1956; J2250; J2370; J2405; J2704; J3010; J3370; J3490; J7050

== ENCOUNTER 2022-06-07 10:42 | Outpatient (CLI) | payer MEDICARE | END 2022-06-07 10:43 | disposition home or self-care (01) | LOC: HS RAD 10:42 | PROVIDERS: ATTEND Family Medicine | DX: K59.00 Constipation, unspecified (principal); R10.9 Unspecified abdominal pain; N28.1 Cyst of kidney, acquired; N20.0 Calculus of kidney; Z90.79 Acquired absence of other genital organ(s); N32.89 Other specified disorders of bladder; Z98.1 Arthrodesis status | CPT/HCPCS: 74177 ==

== ENCOUNTER 2022-06-07 17:41 | Inpatient (IN) | payer MEDICARE ==
[~2022-06-07 17:41] MED LIST: Iopamidol-370 76% 500 ML MDV (1 ML CHARGE) ONE
[2022-06-07] MEDS ORDERED: Morphine 4 MG/ML VIAL ONE (18:29)
[2022-06-07 18:38] LABS: #Eosinphils 0.3 thou/uL (0.0-0.7); #Lymphocytes 1.3 thou/uL (1.20-3.40); #Neutrophils 12.6 thou/uL (1.40-6.50); %Basophils 0.2 % (0.0-1.0); %Eosinophils 2.1 % (0.0-10.0); %Lymphocytes 8.8 % (21.0-51.0); %Monocytes 6.5 % (0.0-10.0); %Neutrophils 82.5 % (42.0-75.0); Mean Corpuscular HGB CONC 35.7 g/dL (32.0-36.0); Mean Corpuscular Volume 98.1 fl (78.0-98.0); Mean Platelet Volume 7.6 fL (7.4-10.4); Platelet Count 412 10x3/uL (130-400); RBC Distribution Width 12.5 % (11.5-14.5); White Blood Cell (WBC) Count 15.2 10x3/uL (4.8-10.8)
[2022-06-07 19:00] LABS: ALT (SGPT) 29 U/L (8-55); AST (SGOT) 19 U/L (5-34); Albumin 3.6 g/dL (3.4-4.8); Alkaline Phosphatase 66 U/L (40-110); Anion Gap 19 mmol/L (10-20); BUN (Urea Nitrogen) 39 mg/dL (8.4-25.7); Bilirubin, Total 0.5 mg/dL (0.2-1.2); Calc. Creatinine Clearance 0 mL/min (70-130); Calcium 9.1 mg/dL (7.8-10.44); Carbon Dioxide 21 mmol/L (23-31); Chloride 97 mmol/L (98-107); Estimated GFR 88; Globulin 3.6 g/dL (2.4-3.5); Glucose 131 mg/dL (83-110); Lipase 8 U/L (8-78); Potassium 3.9 mmol/L (3.5-5.1); Protein, Total 7.2 g/dL (5.8-8.1); Sodium 133 mmol/L (136-145)
[2022-06-07] MEDS ORDERED: Ondansetron ODT 4 MG TAB PO PRN (23:23)
[2022-06-07] MEDS ORDERED: Acetaminophen 325 MG TAB PO PRN (23:23)
[2022-06-07] MEDS ORDERED: Lactated Ringer's 1,000 ML IV SCH (23:59)
[2022-06-07] MEDS ORDERED: Mineral Oil ENEMA PR SCH (23:59)
[2022-06-08 01:02] VITALS: BMI 28.0
[2022-06-08] MEDS: Ketorolac Tromethamine 30 MG/ML VIAL IVP PRN ×3 (02:05→15:13)
[2022-06-08 07:31] LABS: #Eosinphils 0.2 thou/uL (0.0-0.7); #Lymphocytes 1.1 thou/uL (1.20-3.40); #Monocytes 1.1 thou/uL (0.11-0.59); #Neutrophils 11.7 thou/uL (1.40-6.50); %Basophils 0.1 % (0.0-1.0); %Eosinophils 1.5 % (0.0-10.0); %Lymphocytes 7.7 % (21.0-51.0); %Monocytes 7.5 % (0.0-10.0); %Neutrophils 83.1 % (42.0-75.0); Hemoglobin 13.2 g/dL (14.0-18.0); Mean Corpuscular HGB CONC 33.6 g/dL (32.0-36.0); Mean Corpuscular Hemoglobin 32.5 pg (27.0-31.0); Mean Corpuscular Volume 96.9 fl (78.0-98.0); Mean Platelet Volume 7.6 fL (7.4-10.4); Platelet Count 422 10x3/uL (130-400); RBC Distribution Width 12.7 % (11.5-14.5); Red Blood Cell (RBC) Count 4.05 mill/uL (4.70-6.10); White Blood Cell (WBC) Count 14.1 10x3/uL (4.8-10.8)
[2022-06-08 08:05] LABS: Anion Gap 17 mmol/L (10-20); BUN (Urea Nitrogen) 48 mg/dL (8.4-25.7); Calc. Creatinine Clearance 79 mL/min (70-130); Calcium 8.8 mg/dL (7.8-10.44); Carbon Dioxide 23 mmol/L (23-31); Chloride 98 mmol/L (98-107); Estimated GFR 76; Glucose 139 mg/dL (83-110); Potassium 3.7 mmol/L (3.5-5.1); Sodium 134 mmol/L (136-145)
[2022-06-08] MEDS: Lisinopril/Hydrochlorothiazide 20/25 mg Tablet PO SCH (08:28)
[2022-06-08] MEDS: Polyethylene Glycol 3350 17 GM Packet PO SCH ×2 (08:29→19:45)
[2022-06-08] MEDS: metFORMIN 500 MG TAB PO SCH ×2 (08:29→17:45)
[2022-06-08] MEDS: Gabapentin 300 MG CAP PO SCH ×2 (08:29→19:45)
[2022-06-08] MEDS: Docusate 100 MG CAP PO SCH ×2 (08:29→19:46)
[2022-06-08] MEDS: Famotidine 20 MG TAB PO SCH ×2 (08:29→19:45)
[2022-06-08] MEDS: hydrALAZINE 25 MG TAB PO SCH ×2 (08:29→19:45)
[2022-06-08] MEDS ORDERED: GoLYTELY 4,000 ml Bottle PO SCH (09:15)
[2022-06-08] MEDS: MESALAMINE 0.375 GM PO SCH (09:41)
[2022-06-08] MEDS: Methylnaltrexone 12 MG/0.6 ML VIAL SC SCH (10:44)
[2022-06-08] MEDS: Sodium Chloride 0.9% 1,000 ML IV SCH (19:44)
[2022-06-08] MEDS: Empagliflozin 25 MG TAB PO SCH (19:45)
[2022-06-08] MEDS ORDERED: Ketorolac Tromethamine 30 MG/ML VIAL IVP SCH (23:45)
[2022-06-09] MEDS: Sodium Chloride 0.9% 1,000 ML IV SCH ×2 (05:57→21:06)
[2022-06-09] MEDS ORDERED: Ketorolac Tromethamine 30 MG/ML VIAL ONE (07:12)
[2022-06-09] MEDS: Ketorolac Tromethamine 30 MG/ML VIAL IVP PRN ×3 (07:14→21:05)
[2022-06-09 07:22] LABS: #Eosinphils 0.5 thou/uL (0.0-0.7); #Lymphocytes 1.2 thou/uL (1.20-3.40); #Monocytes 0.9 thou/uL (0.11-0.59); %Basophils 0.3 % (0.0-1.0); %Eosinophils 4.6 % (0.0-10.0); %Lymphocytes 11.5 % (21.0-51.0); %Neutrophils 75.7 % (42.0-75.0); Hemoglobin 13.5 g/dL (14.0-18.0); Mean Corpuscular HGB CONC 32.8 g/dL (32.0-36.0); Mean Corpuscular Hemoglobin 31.9 pg (27.0-31.0); Mean Corpuscular Volume 97.3 fl (78.0-98.0); Mean Platelet Volume 7.6 fL (7.4-10.4); Platelet Count 449 10x3/uL (130-400); RBC Distribution Width 12.7 % (11.5-14.5); Red Blood Cell (RBC) Count 4.21 mill/uL (4.70-6.10); White Blood Cell (WBC) Count 10.6 10x3/uL (4.8-10.8)
[2022-06-09 07:47] LABS: Anion Gap 17 mmol/L (10-20); BUN (Urea Nitrogen) 41 mg/dL (8.4-25.7); Calc. Creatinine Clearance 100 mL/min (70-130); Calcium 8.6 mg/dL (7.8-10.44); Carbon Dioxide 22 mmol/L (23-31); Chloride 102 mmol/L (98-107); Estimated GFR 90; Glucose 105 mg/dL (83-110); Potassium 3.4 mmol/L (3.5-5.1); Sodium 138 mmol/L (136-145)
[2022-06-09] MEDS ORDERED: Potassium Chloride 20 MEQ TAB PO SCH (08:00)
[2022-06-09] MEDS ORDERED: Electrolyte Replacement Protocol 1 EACH FS SCH (08:00)
[2022-06-09] MEDS: Polyethylene Glycol 3350 17 GM Packet PO SCH ×2 (09:13→21:05)
[2022-06-09] MEDS: hydrALAZINE 25 MG TAB PO SCH ×2 (09:14→21:05)
[2022-06-09] MEDS: Lisinopril/Hydrochlorothiazide 20/25 mg Tablet PO SCH (09:14)
[2022-06-09] MEDS: Gabapentin 300 MG CAP PO SCH ×2 (09:14→21:06)
[2022-06-09] MEDS: Famotidine 20 MG TAB PO SCH ×2 (09:15→21:06)
[2022-06-09] MEDS: MESALAMINE 0.375 GM PO SCH (09:15)
[2022-06-09] MEDS: Docusate 100 MG CAP PO SCH (09:15)
[2022-06-09] MEDS: metFORMIN 500 MG TAB PO SCH ×2 (09:15→18:08)
[2022-06-09] MEDS ORDERED: Preparation H Suppository PR PRN (18:44)
[2022-06-09] MEDS: Empagliflozin 25 MG TAB PO SCH (21:06)
[2022-06-09] MEDS: Senokot S 8.6-50 MG TAB PO SCH (21:06)
[2022-06-10] MEDS: Ketorolac Tromethamine 30 MG/ML VIAL IVP PRN (05:24)
[2022-06-10 07:09] LABS: #Eosinphils 0.5 thou/uL (0.0-0.7); #Lymphocytes 1.3 thou/uL (1.20-3.40); #Monocytes 0.7 thou/uL (0.11-0.59); #Neutrophils 6.5 thou/uL (1.40-6.50); %Basophils 0.1 % (0.0-1.0); %Eosinophils 5.6 % (0.0-10.0); %Lymphocytes 14.6 % (21.0-51.0); %Monocytes 8.1 % (0.0-10.0); %Neutrophils 71.7 % (42.0-75.0); Hemoglobin 12.6 g/dL (14.0-18.0); Mean Corpuscular HGB CONC 33.3 g/dL (32.0-36.0); Mean Corpuscular Hemoglobin 32.2 pg (27.0-31.0); Mean Corpuscular Volume 96.6 fl (78.0-98.0); Mean Platelet Volume 7.3 fL (7.4-10.4); Platelet Count 468 10x3/uL (130-400); RBC Distribution Width 12.7 % (11.5-14.5); Red Blood Cell (RBC) Count 3.92 mill/uL (4.70-6.10); White Blood Cell (WBC) Count 9.1 10x3/uL (4.8-10.8)
[2022-06-10 07:30] LABS: Anion Gap 12 mmol/L (10-20); BUN (Urea Nitrogen) 32 mg/dL (8.4-25.7); Calc. Creatinine Clearance 114 mL/min (70-130); Calcium 8.5 mg/dL (7.8-10.44); Carbon Dioxide 24 mmol/L (23-31); Chloride 108 mmol/L (98-107); Estimated GFR 94; Glucose 111 mg/dL (83-110); Potassium 3.6 mmol/L (3.5-5.1); Sodium 140 mmol/L (136-145)
[2022-06-10] MEDS: Lisinopril/Hydrochlorothiazide 20/25 mg Tablet PO SCH (09:38)
[2022-06-10] MEDS: hydrALAZINE 25 MG TAB PO SCH (09:38)
[2022-06-10] MEDS: Gabapentin 300 MG CAP PO SCH (09:38)
[2022-06-10] MEDS: metFORMIN 500 MG TAB PO SCH ×2 (09:39→16:21)
[2022-06-10] MEDS: Famotidine 20 MG TAB PO SCH (09:39)
[2022-06-10] MEDS: Senokot S 8.6-50 MG TAB PO SCH (09:39)
[2022-06-10] MEDS: Sodium Chloride 0.9% 1,000 ML IV SCH (09:40)
[2022-06-10] MEDS: Polyethylene Glycol 3350 17 GM Packet PO SCH (09:40)
[2022-06-10] MEDS: Methylnaltrexone 12 MG/0.6 ML VIAL SC SCH ×2 (09:40→11:01)
[2022-06-10] MEDS: MESALAMINE 0.375 GM PO SCH (09:52)
[2022-06-10] MEDS ORDERED: Ketorolac Tromethamine 30 MG/ML VIAL IVP SCH ×2 (10:00→17:15)
[2022-06-10 19:51] VITALS: BP 151/72; TEMP 98.3
== END 2022-06-10 20:19 | DRG 392 ==
LOC: ERS 17:41 → T4-A 22:23 → OBSVTOIN 06-08 09:10
PROVIDERS: ADMIT Student in an Organized Health Care Education/Training Program; ATTEND Family Medicine
DX: K59.03 Drug induced constipation (principal); K51.20 Ulcerative (chronic) proctitis without complications; K52.89 Other specified noninfective gastroenteritis and colitis; I10 Essential (primary) hypertension; E11.9 Type 2 diabetes mellitus without complications; F17.210 Nicotine dependence, cigarettes, uncomplicated; T40.2X5A Adverse effect of other opioids, initial encounter; Z88.8 Allergy status to other drugs, medicaments and biological substances; Z88.0 Allergy status to penicillin; Z91.010 Allergy to peanuts; Z79.84 Long term (current) use of oral hypoglycemic drugs; Z79.899 Other long term (current) drug therapy; N28.1 Cyst of kidney, acquired; N20.0 Calculus of kidney; Z90.79 Acquired absence of other genital organ(s); N32.89 Other specified disorders of bladder; Z98.1 Arthrodesis status
CPT/HCPCS: 36415; 74018; 74177; 80048; 80053; 83605; 83690; 85025; 93005; 96374; 96375; 96376; G0378; J1885; J2212; J2270; J7050; J7120; Q9967